=== PATIENT | female | born 1985 | race Native Hawaiian/Other Pacific Islander ===

== ENCOUNTER 2019-02-17 16:41 | Emergency (ER) | payer OTHER, SELFPAY ==
[2019-02-17 16:49] VITALS: BP 157/99; PULSE 81; RESP 14; TEMP 36.8; O2SAT 97; BMI 37.8
--- NOTE | 2019-02-17 16:51 | DI.RAD.S_ITS ---
PROCEDURE: XR CHEST 1V INDICATIONS: chest pain TECHNIQUE: One view of the chest was acquired. COMPARISON: None. FINDINGS: Surgical changes and devices: None. Lungs and pleura: Lungs are clear. No pleural effusions or pneumothorax. Mediastinum: Mediastinal contours appear normal. Heart size is normal. Bones and chest wall: No suspicious bony lesions. Overlying soft tissues appear unremarkable. IMPRESSION: Normal for age, source of current chest pain symptoms is not seen. Dictated by: Isma Steele M.D. on 02/17/2019 at 17:22 Approved by: Isma Steele M.D. on 02/17/2019 at 17:23
--- NOTE | 2019-02-17 17:20 | PC.NURSE ---
pt reports, onset of sxs 2 days ago, with left side face,neck,arm,left chest discomfort. dyspneic on exertion (talking and walking) feeling tired. denies fever,nausea or vomiting. hx of asthma, better 2013. has been taking claritin,flonase and sudafed. hx pda, candice,d&c.
[2019-02-17 17:22] VITALS: BP 144/98; PULSE 86; RESP 24; O2SAT 97
[2019-02-17 17:39] LABS: Add Manual Diff / Slide Review NO; Basophils Absolute Auto 100 /uL (0-100); Basophils Percent Auto 1.2 % (0-2); Eosinophils Absolute Auto 100 /uL (0-450); Eosinophils Percent Auto 1.3 % (2-4); Hematocrit 41.3 % (36-46); Lymphocytes Absolute Auto 2400 /uL (1100-4500); Lymphocytes Percent Auto 23.3 % (25-40); Mean Corpuscular Hemoglobin 30.4 PG (26-34); Mean Corpuscular Volume 89.5 fL (80-100); Monocytes Absolute Auto 700 /uL (0-900); Monocytes Percent Auto 7.3 % (3-14); Neutrophils Absolute Auto 6800 /uL (1500-7000); Neutrophils Percent Auto 66.9 % (50-75); Platelet Count 303 X10^3/uL (150-400); Red Blood Cell Count 4.61 X10^6/uL (4.0-5.2); Red Cell Distribution Width 12.3 % (11.6-14.8); White Blood Cell Count 10.2 X10^3/uL (4.5-11.0)
--- NOTE | 2019-02-17 17:43 | ED.CHESTPAIN ---
HPI - Chest Pain <Carmen Hopson PA-C - Last Filed: 02/17/19 20:49> General Chief Complaint: Chest Pain Stated Complaint: states tightness in her chest Time Seen by Provider: 02/17/19 17:43 Source: patient Mode of arrival: ambulatory Limitations: no limitations History of Present Illness HPI narrative: This 33-year-old female comes in due to 4 day history of chest discomfort and dyspnea. She describes the chest as a tight, heavy sensation. She thinks that she woke up with it on Thursday. She indicates the pain is around the collarbone area. She states that she has also been short of breath, feeling like it is hard to get a deep breath and wheeze at times. She states that the chest tightness radiates up into her neck and jaw off and on, which is more of a sharp pain than the heaviness she feels in her chest. She states that this is constant, but worse when sitting up versus lying down, worse with walking around. She denies any nausea or vomiting. She denies pain in her back. She denies any new pain or swelling in her extremities. She denies any cough or fever. 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 She denies any other new complaints on systems review aside from fatigue. She does have a history of allergies which are worst currently and has a history of allergy induced asthma though has not had that in this climate in the last few years. She denies possibility of , uses rhythm method for control. She has no family history of early heart disease or blood clots in her immediate family. She did have a PDA repaired at age 3 Related Data Home Medications Medication Instructions Recorded Confirmed fluticasone propionate [Flonase 1 spray INTRANASAL DAILY 02/17/19 02/17/19 Allergy Relief] loratadine [Claritin] 10 mg PO DAILY 02/17/19 02/17/19 pseudoephedrine HCl [Sudafed] 1 dose PO PRN PRN 02/17/19 02/17/19 Previous Rx's Medication Instructions Recorded albuterol sulfate 2 inhalation INHALATION Q3-4H PRN 02/17/19 #8.5 gram Allergies Allergy/AdvReac Type Severity Reaction Status Date / Time sulindac Allergy Severe ANAPHYLAXIS Verified 02/17/19 16:49 Review of Systems <Carmen Hopson PA-C - Last Filed: 02/17/19 20:49> Review of Systems ROS Unobtainable: All systems reviewed & are unremarkable except as noted in HPI and below PFSH <Carmen Hopson PA-C - Last Filed: 02/17/19 20:49> Medical History (Updated 02/17/19 @ 19:20 by Carmen Hopson PA-C) Asthma due to seasonal allergies (Chronic) Eczema (Chronic) Surgical History S/P repair of PDA (patent ductus arteriosus) (Resolved) History of third molar tooth extraction Status post dilation and curettage (12/18/14) Status post laparoscopic cholecystectomy Status post laparoscopy Family History (Updated 05/14/17 @ 00:00 by Conversion Provider) Father Colon cancer Mother Breast cancer Social History Smoking Status: Never smoker Family History (Updated 05/14/17 @ 00:00 by Conversion Provider) Father Colon cancer Mother Breast cancer Social History Smoking Status: Never smoker Exam <Carmen Hopson PA-C - Last Filed: 02/17/19 20:49> Narrative Exam Narrative: GENERAL APPEARANCE: Patient sitting comfortably, in no distress. EYES: PERRL, EOMI. ORAL CAVITY: Normal oropharynx. THROAT: Clear, a little PND noted. NECK/THYROID: Neck supple, full range of motion, no cervical lymphadenopathy. No supraclavicular nodes LUNGS: Clear to auscultation bilaterally aside from some slight lower lobe crackles that clear with cough, no wheeze. Clear to auscultation following nebulizer treatment CHEST: Tender to palpation over the caudal part of the sternum and left clavicular/infraclavicular area HEART: RRR without murmur, nl S1, S2, no S3 or S4. ABDOMEN: Soft, nontender, nondistended, no CVAT EXTREMITIES: No edema, no cyanosis, no calf tenderness DERMATOLOGIC: No exanthem NEUROLOGIC: Patient is alert and oriented with normal speech and coordination MUSCULOSKELETAL: Slightly reduced right C-spine lateral bend and rotation secondary to tenderness. Full range of motion of the left upper extremity with mild and point tenderness Initial Vital Signs Initial Vital Signs: Vital Signs Temperature 98.3 F 02/17/19 16:49 Pulse Rate 81 02/17/19 16:49 Respiratory Rate 14 02/17/19 16:49 Blood Pressure 157/99 H 02/17/19 16:49 Pulse Oximetry 97 02/17/19 16:49 <Gerardo Rosas MD - Last Filed: 02/18/19 06:05> Initial Vital Signs Initial Vital Signs: Vital Signs Temperature 98.3 F 02/17/19 16:49 Pulse Rate 81 02/17/19 16:49 Respiratory Rate 14 02/17/19 16:49 Blood Pressure 157/99 H 02/17/19 16:49 Pulse Oximetry 97 02/17/19 16:49 Course <Carmen Hopson PA-C - Last Filed: 02/17/19 20:49> Additional Information: The patient had improvement in her breathing after nebulizer treatments and symptoms correlate with worsening of her seasonal allergies. She has a history allergy induced asthma. Chest and shoulder discomfort have improved after anti-inflammatory. She does have tenderness elicited with pressure on the chest and with movement. Likely musculoskeletal. Reviewed findings with attending physician Dr. Rosas who agrees with plan to d/c patient. She agrees to f/u with PCP and return if any acute changes/worsening sx Orders Ordered: Discontinued Medications Albuterol/Ipratropium (Duoneb) 3 ml INH NOW ONE Stop: 02/17/19 17:57 Last Admin: 02/17/19 18:04 Dose: 3 ml Albuterol/Ipratropium (Duoneb) 3 ml INH NOW ONE Stop: 02/17/19 17:57 Last Admin: 02/17/19 18:04 Dose: Not Given Ketorolac Tromethamine (Toradol) 30 mg IV NOW ONE Stop: 02/17/19 18:37 Last Admin: 02/17/19 18:52 Dose: 30 mg Vital Signs - 8 hr 02/17/19 16:49 02/17/19 17:22 02/17/19 18:04 Temperature 98.3 F Pulse Rate 81 86 Respiratory Rate 14 24 Blood Pressure 157/99 H Blood Pressure [Right Arm] 144/98 H Pulse Oximetry 97 97 98 02/17/19 19:14 Temperature Pulse Rate 89 Respiratory Rate 21 Blood Pressure Blood Pressure [Right Arm] 142/95 H Pulse Oximetry 98 <Gerardo Rosas MD - Last Filed: 02/18/19 06:05> Orders Ordered: Discontinued Medications Albuterol/Ipratropium (Duoneb) 3 ml INH NOW ONE Stop: 02/17/19 17:57 Last Admin: 02/17/19 18:04 Dose: 3 ml Albuterol/Ipratropium (Duoneb) 3 ml INH NOW ONE Stop: 02/17/19 17:57 Last Admin: 02/17/19 18:04 Dose: Not Given Ketorolac Tromethamine (Toradol) 30 mg IV NOW ONE Stop: 02/17/19 18:37 Last Admin: 02/17/19 18:52 Dose: 30 mg Vital Signs - 8 hr 02/17/19 16:49 02/17/19 17:22 02/17/19 18:04 Temperature 98.3 F Pulse Rate 81 86 Respiratory Rate 14 24 Blood Pressure 157/99 H Blood Pressure [Right Arm] 144/98 H Pulse Oximetry 97 97 98 02/17/19 19:14 Temperature Pulse Rate 89 Respiratory Rate 21 Blood Pressure Blood Pressure [Right Arm] 142/95 H Pulse Oximetry 98 MDM - Chest Pain <Carmen Hopson PA-C - Last Filed: 02/17/19 20:49> Lab Data Attestation: I reviewed the patient's lab results. Result diagrams: 02/17/19 17:15 02/17/19 17:15 Lab Results 02/17/19 02/17/19 02/17/19 Range/Units 17:15 17:15 17:15 WBC 10.2 (4.5-11.0) X10^3/uL RBC 4.61 (4.0-5.2) X10^6/uL Hgb 14.0 (12.0-16.0) g/dL Hct 41.3 (36-46) % MCV 89.5 (80-100) fL MCH 30.4 (26-34) PG MCHC 34.0 (30-36) % RDW 12.3 (11.6-14.8) % Plt Count 303 (150-400) X10^3/uL Neut % (Auto) 66.9 (50-75) % Lymph % (Auto) 23.3 L (25-40) % [place] % (Auto) 7.3 (3-14) % Eos % (Auto) 1.3 L (2-4) % Baso % (Auto) 1.2 (0-2) % Neut # (Auto) 6800 (5109-2834) /uL Lymph # (Auto) 2400 (4894-9102) /uL [place] # (Auto) 700 (0-900) /uL Eos # (Auto) 100 (0-450) /uL Baso # (Auto) 100 (0-100) /uL PT 12.1 (10.1-12.7) SECONDS INR 1.0 (0.9-1.3) APTT 32 (26.4-36.2) SECONDS D-Dimer (<230) ng/mL Sodium 139 (137-145) mmol/L Potassium 3.6 (3.4-5.1) mmol/L Chloride 100 (98-107) mmol/L Carbon Dioxide 29 (22-32) mmol/L BUN 8 (7-17) mg/dL Creatinine 0.60 (0.52-1.04) mg/dL Estimated GFR > 60.0 (>60) mL/min BUN/Creatinine Ratio 13.3 (6-22) Glucose 102 H (70-100) mg/dL Calcium 9.1 (8.4-10.2) mg/dL Total Bilirubin 0.7 (0.2-1.3) mg/dL AST 18 (14-36) IU/L ALT 13 (9-52) IU/L Alkaline Phosphatase 85 (38-126) U/L Total Creatine Kinase 94 (30-135) U/L CK-MB (CK-2) TNP CK-MB (CK-2) Rel Index TNP Troponin I < 0.012 (0.01-0.034) ng/mL Total Protein 8.4 H (6.3-8.2) g/dL Albumin 4.3 (3.5-5.0) g/dL Globulin 4.1 (1.7-4.1) g/dL Albumin/Globulin Ratio 1.0 (1.0-2.8) Lipase 37 (23-300) U/L // Range/Units 17:15 WBC (4.5-11.0) X10^3/uL RBC (4.0-5.2) X10^6/uL Hgb (12.0-16.0) g/dL Hct (36-46) % MCV (80-100) fL MCH (26-34) PG MCHC (30-36) % RDW (11.6-14.8) % Plt Count (150-400) X10^3/uL Neut % (Auto) (50-75) % Lymph % (Auto) (25-40) % [place] % (Auto) (3-14) % Eos % (Auto) (2-4) % Baso % (Auto) (0-2) % Neut # (Auto) (1994-0977) /uL Lymph # (Auto) (6421-3579) /uL [place] # (Auto) (0-900) /uL Eos # (Auto) (0-450) /uL Baso # (Auto) (0-100) /uL PT (10.1-12.7) SECONDS INR (0.9-1.3) APTT (26.4-36.2) SECONDS D-Dimer 271 H (<230) ng/mL Sodium (137-145) mmol/L Potassium (3.4-5.1) mmol/L Chloride (98-107) mmol/L Carbon Dioxide (22-32) mmol/L BUN (7-17) mg/dL Creatinine (0.52-1.04) mg/dL Estimated GFR (>60) mL/min BUN/Creatinine Ratio (6-22) Glucose (70-100) mg/dL Calcium (8.4-10.2) mg/dL Total Bilirubin (0.2-1.3) mg/dL AST (14-36) IU/L ALT (9-52) IU/L Alkaline Phosphatase (38-126) U/L Total Creatine Kinase (30-135) U/L CK-MB (CK-2) CK-MB (CK-2) Rel Index Troponin I (0.01-0.034) ng/mL Total Protein (6.3-8.2) g/dL Albumin (3.5-5.0) g/dL Globulin (1.7-4.1) g/dL Albumin/Globulin Ratio (1.0-2.8) Lipase (23-300) U/L Point of Care Testing Test Results Negative Urine Dip Bedside Urine Glucose Negative Bedside Urine Bilirubin - Negative Bedside Urine Ketone - Negative Urine Specific Terral 1.015 Bedside Urine Occult Blood - Negative Bedside Urine pH 6.0 Bedside Urine Protein - Negative Bedside Urine Urobilinogen - Negative Bedside Urine Nitrite - Negative Bedside Urine Leukocytes - Negative Esterase ECG Data Attestation: I personally reviewed and interpreted this ECG as follows: (Normal sinus rhythm with minor T-wave inversions in inferior leads) Prior ECG tracings: not available for review <Gerardo Rosas MD - Last Filed: 02/18/19 06:05> Lab Data Lab Results 02/17/19 02/17/19 02/17/19 Range/Units 17:15 17:15 17:15 WBC 10.2 (4.5-11.0) X10^3/uL RBC 4.61 (4.0-5.2) X10^6/uL Hgb 14.0 (12.0-16.0) g/dL Hct 41.3 (36-46) % MCV 89.5 (80-100) fL MCH 30.4 (26-34) PG MCHC 34.0 (30-36) % RDW 12.3 (11.6-14.8) % Plt Count 303 (150-400) X10^3/uL Neut % (Auto) 66.9 (50-75) % Lymph % (Auto) 23.3 L (25-40) % [place] % (Auto) 7.3 (3-14) % Eos % (Auto) 1.3 L (2-4) % Baso % (Auto) 1.2 (0-2) % Neut # (Auto) 6800 (3652-2487) /uL Lymph # (Auto) 2400 (7446-8284) /uL [place] # (Auto) 700 (0-900) /uL Eos # (Auto) 100 (0-450) /uL Baso # (Auto) 100 (0-100) /uL PT 12.1 (10.1-12.7) SECONDS INR 1.0 (0.9-1.3) APTT 32 (26.4-36.2) SECONDS D-Dimer (<230) ng/mL Sodium 139 (137-145) mmol/L Potassium 3.6 (3.4-5.1) mmol/L Chloride 100 (98-107) mmol/L Carbon Dioxide 29 (22-32) mmol/L BUN 8 (7-17) mg/dL Creatinine 0.60 (0.52-1.04) mg/dL Estimated GFR > 60.0 (>60) mL/min BUN/Creatinine Ratio 13.3 (6-22) Glucose 102 H (70-100) mg/dL Calcium 9.1 (8.4-10.2) mg/dL Total Bilirubin 0.7 (0.2-1.3) mg/dL AST 18 (14-36) IU/L ALT 13 (9-52) IU/L Alkaline Phosphatase 85 (38-126) U/L Total Creatine Kinase 94 (30-135) U/L CK-MB (CK-2) TNP CK-MB (CK-2) Rel Index TNP Troponin I < 0.012 (0.01-0.034) ng/mL Total Protein 8.4 H (6.3-8.2) g/dL Albumin 4.3 (3.5-5.0) g/dL Globulin 4.1 (1.7-4.1) g/dL Albumin/Globulin Ratio 1.0 (1.0-2.8) Lipase 37 (23-300) U/L 02/17/19 Range/Units 17:15 WBC (4.5-11.0) X10^3/uL RBC (4.0-5.2) X10^6/uL Hgb (12.0-16.0) g/dL Hct (36-46) % MCV (80-100) fL MCH (26-34) PG MCHC (30-36) % RDW (11.6-14.8) % Plt Count (150-400) X10^3/uL Neut % (Auto) (50-75) % Lymph % (Auto) (25-40) % [place] % (Auto) (3-14) % Eos % (Auto) (2-4) % Baso % (Auto) (0-2) % Neut # (Auto) (1350-1940) /uL Lymph # (Auto) (8795-8053) /uL [place] # (Auto) (0-900) /uL Eos # (Auto) (0-450) /uL Baso # (Auto) (0-100) /uL PT (10.1-12.7) SECONDS INR (0.9-1.3) APTT (26.4-36.2) SECONDS D-Dimer 271 H (<230) ng/mL Sodium (137-145) mmol/L Potassium (3.4-5.1) mmol/L Chloride (98-107) mmol/L Carbon Dioxide (22-32) mmol/L BUN (7-17) mg/dL Creatinine (0.52-1.04) mg/dL Estimated GFR (>60) mL/min BUN/Creatinine Ratio (6-22) Glucose (70-100) mg/dL Calcium (8.4-10.2) mg/dL Total Bilirubin (0.2-1.3) mg/dL AST (14-36) IU/L ALT (9-52) IU/L Alkaline Phosphatase (38-126) U/L Total Creatine Kinase (30-135) U/L CK-MB (CK-2) CK-MB (CK-2) Rel Index Troponin I (0.01-0.034) ng/mL Total Protein (6.3-8.2) g/dL Albumin (3.5-5.0) g/dL Globulin (1.7-4.1) g/dL Albumin/Globulin Ratio (1.0-2.8) Lipase (23-300) U/L Point of Care Testing Test Results Negative Urine Dip Bedside Urine Glucose Negative Bedside Urine Bilirubin - Negative Bedside Urine Ketone - Negative Urine Specific Terral 1.015 Bedside Urine Occult Blood - Negative Bedside Urine pH 6.0 Bedside Urine Protein - Negative Bedside Urine Urobilinogen - Negative Bedside Urine Nitrite - Negative Bedside Urine Leukocytes - Negative Esterase Discharge Plan Departure Patient Disposition: Home Clinical Impression: Asthma exacerbation Qualifiers: Asthma severity: mild Asthma persistence: intermittent Qualified Code(s): J45.21 - Mild intermittent asthma with (acute) exacerbation Chest wall muscle strain Qualifiers: Encounter type: initial encounter Qualified Code(s): S29.011A - Strain of muscle and tendon of front wall of thorax, initial encounter Discharge Date/Time: 02/17/19 19:43 Interventions: ED Discharge Assessment Last Done: 02/17/19 19:43 Instructions: Allergic Rhinitis, DI for Asthma -- Adult, DI for Atypical Chest Pain Activity Restrictions/Additional Instructions: Since you are feeling better, you can return home and monitor. Please take 800 mg of ibuprofen every 8 hours routinely for now for your pain since it is similar to the medicine that we gave you here and that seems to have helped. I suspect that the pain in your chest and shoulder/neck area are muscular, since we can make them happen with pressure on the chest and neck and arm movements. It is possible that you strained this area. Since your breathing is better after the nebulizer treatment, I suspect that this was a separate issue related to your asthma, especially since her allergies have been worse recently. Please continue your allergy medicine as and use the inhaler with spacer as often as needed. Please see your PCP in the next few days for follow-up to determine whether you need further treatment, and as we discussed, you should return here if you have any acutely worsening symptoms. Prescriptions: New albuterol sulfate 90 mcg/actuation HFA aerosol inhaler 2 inhalation INHALATION Q3-4H PRN (Reason: asthma) Qty: 8.5 RF: 0 No Action pseudoephedrine HCl [Sudafed] 30 mg Tablet 1 dose PO PRN PRN (Reason: Congestion) RF: 0 fluticasone propionate [Flonase Allergy Relief] 50 mcg/actuation [place],Suspension 1 spray Intranasal DAILY RF: 0 loratadine [Claritin] 10 mg Tablet 10 mg PO DAILY RF: 0 Referrals: Leona Jerez ARNP [Primary Care Provider] - <Gerardo Rosas MD - Last Filed: 02/18/19 06:05> Cosign ED Attending Larryature Attestation: I was present in the ER at the time of this patient's evaluation. I was available for consultation or to see the patient directly. I agree with the assessment and treatment plan
[2019-02-17 17:44] LABS: Prothrombin Time 12.1 SECONDS (10.1-12.7)
[2019-02-17 17:47] LABS: PTT Partial Thromboplastin Tim 32 SECONDS (26.4-36.2)
[2019-02-17 17:49] LABS: Alanine Aminotransferase 13 IU/L (9-52); Albumin 4.3 g/dL (3.5-5.0); Alkaline Phosphatase 85 U/L (38-126); Aspartate Aminotransferase 18 IU/L (14-36); BUN Creatinine Ratio 13.3 (6-22); Bilirubin Total 0.7 mg/dL (0.2-1.3); Blood Urea Nitrogen 8 mg/dL (7-17); Calcium 9.1 mg/dL (8.4-10.2); Carbon Dioxide 29 mmol/L (22-32); Chloride 100 mmol/L (98-107); Creatine Kinase 94 U/L (30-135); Estimated Glomerular Filt Rate > 60.0 mL/min (>60); Globulin 4.1 g/dL (1.7-4.1); Glucose 102 mg/dL (70-100); HEMOLYSIS < 15 (0-50); Lipase 37 U/L (23-300); Potassium 3.6 mmol/L (3.4-5.1); Sodium 139 mmol/L (137-145); Total Protein 8.4 g/dL (6.3-8.2)
[2019-02-17 18:01] LABS: Troponin I < 0.012 ng/mL (0.01-0.034)
[2019-02-17 18:04] VITALS: O2SAT 98
[2019-02-17] MEDS: ALBUTEROL/IPRATROPIUM 3 ML AMPUL INH (18:04)
[2019-02-17 18:19] LABS: D Dimer 271 ng/mL (<230)
[2019-02-17] MEDS: KETOROLAC 60 MG/2 ML VIAL 30 MG IV (18:52)
[2019-02-17 19:14] VITALS: BP 142/95; PULSE 89; RESP 21; O2SAT 98
== END 2019-02-17 19:43 | disposition home or self-care (01) ==
PROVIDERS: Emergency Medicine; Emergency Provider Internal Medicine; Family Provider Specialist; PCP Nurse Practitioner
DX: J45.21 Mild intermittent asthma with (acute) exacerbation (principal); S29.011A Strain of muscle and tendon of front wall of thorax, initial encounter; R07.89 Other chest pain
CPT/HCPCS: 36591; 71045; 80053; 81003; 81025; 82550; 83690; 84484; 85025; 85379; 85610; 85730; 93005; 93010; 94640; 96374; 99283; 99285; J1885

== ENCOUNTER → 2019-03-01 10:50 | Outpatient (CLI) | payer OTHER, SELFPAY ==
[2019-03-01 12:06] LABS: Cholesterol 169 mg/dL (140-199); Glucose 98 mg/dL (70-100); HDL Cholesterol 49 mg/dL (40-60); LDL Cholesterol Calculated 105 mg/dL (<100); Triglycerides 73 mg/dL (35-150)
[2019-03-01 12:37] LABS: TSH w/ Reflex to FT4 1.43 uIU/mL (0.47-4.68)
== END ==
PROVIDERS: PCP Nurse Practitioner; Visit Provider Nurse Practitioner
DX: E04.9 Nontoxic goiter, unspecified (principal); Z01.419 Encounter for gynecological examination (general) (routine) without abnormal findings; R73.9 Hyperglycemia, unspecified
CPT/HCPCS: 80061; 82947; 84443

== ENCOUNTER 2019-03-18 19:57 | Emergency (ER) | payer OTHER, SELFPAY ==
[2019-03-18 20:03] VITALS: BP 151/102; PULSE 76; RESP 20; TEMP 36.5; O2SAT 98; BMI 37.8
--- NOTE | 2019-03-18 20:05 | PC.NURSE ---
PT states SOB since this morning, thinks it is related to her asthma, used albuterol at 4pm still experiencing difficulty breathing. Pt denies pain reports chest tightness with deep inspiration. LS clear bilaterally upon auscultation.
[2019-03-18] MEDS: ALBUTEROL 2.5 MG/3 ML NEB (ADULT) INH (20:11)
[2019-03-18] MEDS: ALBUTEROL/IPRATROPIUM 3 ML AMPUL INH (20:11)
[2019-03-18 20:12] VITALS: PULSE 78; RESP 20; O2SAT 100
--- NOTE | 2019-03-18 20:19 | ED_ITS ---
HPI - URI/Sore Throat <Carmen Hopson PA-C - Last Filed: 03/18/19 20:55> General Chief Complaint: Upper Respiratory Symptoms Stated Complaint: NECK PAIN SOB ARM TINGLNESS Time Seen by Provider: 03/18/19 20:09 Source: patient Mode of arrival: ambulatory Limitations: no limitations History of Present Illness HPI Narrative: This 34-year-old female returns to ED due to asthma exacerbation. She states that after seen last month, she after nebulizer treatments. She has since seen her PCP and has been on steroid inhaler and was also put on prednisone. She states that she was feeling much better after on prednisone for 5 days, however stopped on Thursday and now symptoms are worse today. She used the steroid inhaler twice today and also has been using her albuterol all day without good relief. She feels like she has increased wheeze, dyspnea and tightness. She denies any new fever, cough, upper respiratory symptoms. She denies any chest pain, new pain or swelling in extremities and feels like this is typical asthma exacerbation. Denies possibility of . Related Data Home Medications Medication Instructions Recorded Confirmed fluticasone propionate [Flonase 1 spray INTRANASAL DAILY 02/17/19 03/11/19 Allergy Relief] loratadine [Claritin] 10 mg PO DAILY 02/17/19 03/11/19 Previous Rx's Medication Instructions Recorded albuterol sulfate 2 inhalation INHALATION Q3-4H PRN 02/17/19 #8.5 gram albuterol sulfate HFA 90 1 - 2 puff INHALATION Q4-6H PRN 03/01/19 mcg/actuation aerosol inhaler #8.5 gram beclomethasone diprop 40 1 puff INHALATION QAM #10.6 gram 03/11/19 mcg/actuation HFA breath activated aerosol Allergies Allergy/AdvReac Type Severity Reaction Status Date / Time sulindac Allergy Severe ANAPHYLAXIS Verified 03/11/19 12:15 Review of Systems <Carmen Hopson PA-C - Last Filed: 03/18/19 20:55> Review of Systems ROS Unobtainable: All systems reviewed & are unremarkable except as noted in HPI and below PFSH <Carmen Hopson PA-C - Last Filed: 03/18/19 20:55> Medical History Asthma due to seasonal allergies (Chronic) Eczema (Chronic) Family History Father Colon cancer Mother Breast cancer Social History Smoking Status: Never smoker Exam <Carmen Hopson PA-C - Last Filed: 03/18/19 20:55> Narrative Exam Narrative: GENERAL APPEARANCE: Patient sitting comfortably, in no distress. HEENT: EOMI, normal oropharynx NECK/THYROID: Neck supple, no masses LUNGS: Breath sounds a little bit coarse without clear wheezes or crackles, no cough on exam, no accessory muscle use or retraction. Speaking in complete sentences HEART: Regular rate and rhythm without murmur, normal S1, S2, no S3 or S4. EXTREMITIES: No edema. No calf tenderness NEUROLOGIC: Alert and oriented, normal speech, gait and coordination. Initial Vital Signs Initial Vital Signs: Vital Signs Temperature 97.7 F 03/18/19 20:03 Pulse Rate 76 03/18/19 20:03 Respiratory Rate 20 03/18/19 20:03 Blood Pressure 151/102 H 03/18/19 20:03 Pulse Oximetry 98 03/18/19 20:03 <Gerardo Rosas MD - Last Filed: 03/19/19 02:43> Initial Vital Signs Initial Vital Signs: Vital Signs Temperature 97.7 F 03/18/19 20:03 Pulse Rate 76 03/18/19 20:03 Respiratory Rate 20 03/18/19 20:03 Blood Pressure 151/102 H 03/18/19 20:03 Pulse Oximetry 98 03/18/19 20:03 Course <Carmen Hopson PA-C - Last Filed: 03/18/19 20:55> Additional Information: Patient has known allergy induced asthma, feeling much better after nebulizer treatments. She was doing better on prednisone, finished that on Thursday and now symptoms have worsened again. She did a 5 day course. Will restart as she may need a longer taper. Increased dose on steroid inhaler, continue allergy medicines. She will follow up with her PCP 1st of next week to assess progress and plan how to taper as well as discuss getting nebulizer for home treatment. She agreed to return if any acutely worsening symptoms again in the interim. Orders Ordered: Discontinued Medications Albuterol (Ventolin) 2.5 mg INH NOW ONE Stop: 03/18/19 20:10 Last Admin: 03/18/19 20:11 Dose: 2.5 mg Albuterol/Ipratropium (Duoneb) 3 ml INH NOW ONE Stop: 03/18/19 20:10 Last Admin: 03/18/19 20:11 Dose: 3 ml Prednisone (Deltasone 20 Mg Prepack) 1 bottle MISC SEEINSTR ONE Stop: 03/18/19 20:33 Last Admin: 03/18/19 20:36 Dose: 1 bottle Vital Signs - 8 hr 03/18/19 20:03 03/18/19 20:12 03/18/19 20:42 Temperature 97.7 F Pulse Rate 76 78 81 Respiratory Rate 20 20 16 Blood Pressure 151/102 H Blood Pressure [Left Arm] 137/89 Pulse Oximetry 98 100 99 <Gerardo Rosas MD - Last Filed: 03/19/19 02:43> Orders Ordered: Discontinued Medications Albuterol (Ventolin) 2.5 mg INH NOW ONE Stop: 03/18/19 20:10 Last Admin: 03/18/19 20:11 Dose: 2.5 mg Albuterol/Ipratropium (Duoneb) 3 ml INH NOW ONE Stop: 03/18/19 20:10 Last Admin: 03/18/19 20:11 Dose: 3 ml Prednisone (Deltasone 20 Mg Prepack) 1 bottle MISC SEEINSTR ONE Stop: 03/18/19 20:33 Last Admin: 03/18/19 20:36 Dose: 1 bottle Vital Signs - 8 hr 03/18/19 20:03 03/18/19 20:12 03/18/19 20:42 Temperature 97.7 F Pulse Rate 76 78 81 Respiratory Rate 20 20 16 Blood Pressure 151/102 H Blood Pressure [Left Arm] 137/89 Pulse Oximetry 98 100 99 Discharge Plan Departure Patient Disposition: Home Clinical Impression: Asthma exacerbation Qualifiers: Asthma severity: moderate Asthma persistence: persistent Qualified Code(s): J45.41 - Moderate persistent asthma with (acute) exacerbation Discharge Date/Time: 03/18/19 20:40 Interventions: ED Discharge Assessment Last Done: 03/18/19 20:40 Instructions: DI for Asthma -- Adult Activity Restrictions/Additional Instructions: As we talked about, you should return if you have any acutely worsening symptoms prior to seeing your PCP, which you should do on Thursday or Thursday. You can monitor at home for now since you are feeling better. In the interim, please start prednisone 40 mg daily (2 of the tablets we gave you) for 3 days, then decrease to 30 mg (1-1/2 tablets), then taper as directed by your PCP. You may need to do a longer taper than you did last time since your asthma worsened again right away. Increase your beclomethasone inhaler to 2 puffs twice daily, and use your albuterol inhaler as often as needed. Continue your allergy medicines. Please talk with your PCP about obtaining a nebulizer machine for home use during the allergy season as needed, and whether addition of a medicine called Singulair could be helpful for you as well since you have difficulty with your asthma when your allergies flare up. Prescriptions: No Action albuterol sulfate 90 mcg/actuation HFA aerosol inhaler 1 - 2 puff INHALATION Q4-6H PRN (Reason: shortness of breath or wheezing) Qty: 8.5 RF: 3 beclomethasone dipropionate 40 mcg/actuation HFA aerosol breath activated 1 puff INHALATION QAM Qty: 10.6 RF: 3 fluticasone propionate [Flonase Allergy Relief] 50 mcg/actuation [place],Suspension 1 spray Intranasal DAILY RF: 0 loratadine [Claritin] 10 mg Tablet 10 mg PO DAILY RF: 0 albuterol sulfate 90 mcg/actuation HFA aerosol inhaler 2 inhalation INHALATION Q3-4H PRN (Reason: asthma) Qty: 8.5 RF: 0 Referrals: Leona Jerez ARNP [Primary Care Provider] - <Gerardo Rosas MD - Last Filed: 03/19/19 02:43> Cosign ED Attending Larryature Attestation: I was present in the ER at the time this patient's care. I was available for consultation or to see the patient di rectly. I agree with the assessment and treatment plan.
[2019-03-18] MEDS: predniSONE 20 MG PREPACK 1 BOTTLE MISC (20:36)
[2019-03-18 20:42] VITALS: BP 137/89; PULSE 81; RESP 16; O2SAT 99
== END 2019-03-18 20:40 | disposition home or self-care (01) ==
PROVIDERS: Emergency Provider Internal Medicine; PCP Nurse Practitioner
DX: J45.41 Moderate persistent asthma with (acute) exacerbation (principal)
CPT/HCPCS: 94640; 99282; 99284; J7613

== ENCOUNTER → 2020-03-22 12:04 | Outpatient (CLI) | payer OTHER, SELFPAY ==
--- NOTE | 2020-03-22 12:05 | DI.RAD.S_ITS ---
PROCEDURE: XR CHEST 2V INDICATIONS: shortness of breath TECHNIQUE: 2 views of the chest were acquired. COMPARISON: [facility], CR, XR CHEST 1V, 02/17/2019, 17:04. FINDINGS: Surgical changes and devices: None. Lungs and pleura: Lungs are clear. No pleural effusions or pneumothorax. Mediastinum: Mediastinal contours are normal. Heart size is normal. Bones and chest wall: No suspicious bony abnormalities. Soft tissues appear unremarkable. IMPRESSION: Normal for age, source of current shortness of breath symptoms is not seen. Dictated by: Isma Steele M.D. on 03/22/2020 at 12:48 Approved by: Isma Steele M.D. on 03/22/2020 at 12:48
== END ==
PROVIDERS: PCP Nurse Practitioner; Referring Provider Nurse Practitioner; Visit Provider Nurse Practitioner
DX: R05 Cough (principal); R06.02 Shortness of breath; J45.901 Unspecified asthma with (acute) exacerbation
CPT/HCPCS: 71046; 87635

== ENCOUNTER → 2020-03-22 13:54 | Outpatient (CLI) | payer OTHER, SELFPAY ==
[2020-03-23 13:09] LABS: COVID19 Sendout Not Detected (Not Detected)
== END ==
PROVIDERS: PCP Nurse Practitioner; Visit Provider Physician Assistant
DX: R05 Cough (principal); R06.02 Shortness of breath
CPT/HCPCS: 87635

== ENCOUNTER → 2020-04-05 07:46 | Outpatient (CLI) | payer OTHER, SELFPAY ==
--- NOTE | 2020-04-05 08:00 | DI.ECHO.S_ITS ---
Echocardiogram Report + + :Name: KRISHAN RAMIREZ Study Date: 04/05/2020 Height: 64 in : :[facility] Weight: 230 lb : : Gender: Female BSA: 2.1 m2 : :: 1985 Age: 35 yrs BP: 118/64 mmHg: :Reason For Study: SHORTNESS OF BREATH : :Ordering Physician: ROCHELLE ZUNIGA Performed By: Tammy Cantrell : :Referring: ROCHELLE ZUNIGA : + + Interpretation Summary Patient states history of PDA closure as a child. No significant chamber enlargement on echocardiogram. No evidence of significant pulmonary hypertension. No significant turbulence seen in the main pulmonary artery. Doppler profile of pulmonary artery blood flow is homogeneous and velocity not significantly increased. No significant diastolic retrograde reversal in descending aorta. The left ventricle is normal in size. The ejection fraction is estimated to be 60-65%. Diastolic parameters suggest probable normal left ventricular diastolic function and normal filling pressures. The right ventricle is normal in size and function. Both atria are normal in size. No significant valvular pathology seen. The IVC is of normal diameter and collapses greater than 50% with a sniff. This suggests a low right atrial pressure of 3 mm Hg. Procedure: A two-dimensional transthoracic echocardiogram with color flow and Doppler was performed. The study quality was technically adequate. There is no prior echocardiogram noted for this patient. The patient was in sinus rhythm with heart rates between 68-75 bpm during the exam. Left Ventricle: The left ventricle is normal in size. Mild septal wall thickness. No VERNA. No significant LV outflow tract obstruction. No significant mitral regurgitation. There is no thrombus. The ejection fraction is estimated to be 60-65%. There are no focal wall motion abnormalities. Diastolic parameters suggest probable normal left ventricular diastolic function and normal filling pressures. Right Ventricle: The right ventricle is normal in size and function. Atria: The left atrial size is normal. Both atria are normal in size. Right atrial size is normal. There is no Doppler evidence for an interatrial shunt. Mitral Valve: The mitral valve is normal in structure and function. No systolic anterior motion of the mitral valve. There is no mitral regurgitation noted. Aortic Valve: The aortic valve is trileaflet. The aortic valve opens well. There is no aortic valve stenosis. No aortic regurgitation is present. Tricuspid Valve: The tricuspid valve is normal in structure and function. There is a trace or physiologic amount of tricuspid regurgitation. Pulmonary artery pressures cannot be estimated because of the lack of a measurable TR jet velocity but the IVC suggests a CVP of around 3 mmHg. Pulmonic Valve: The pulmonic valve is not well seen, but is grossly normal. There is a trace or physiologic amount of pulmonic regurgitation. Great Vessels: The aortic root is normal size. The ascending aorta is at the upper limits of normal in size. The IVC is of normal diameter and collapses greater than 50% with a sniff. This suggests a low right atrial pressure of 3 mm Hg. Pericardium/ Pleura There is no pericardial effusion. There is no pleural effusion. MMode/2D Measurements & Calculations LVIDd: 4.5 cm LVOT diam: 2.4 cm LVIDs: 2.8 cm Ao root diam: 3.4 cm FS: 36.5 % asc Aorta Diam: 3.5 cm EPSS: 0.86 cm Ao Arch Diam (Prox Trans): 3.0 cm IVSd: 1.2 cm LVPWd: 0.86 cm LV junior. diameter/BSA (cm/m^2): 2.2 LV sys. diameter/BSA (cm/m^2): 1.4 LA A2 area: 18.1 cm2 RA long axis: 4.6 cm LA A4 area: 20.3 cm2 RA area: 13.1 cm2 LA length (vol): 5.5 cm RA vol: 31.4 ml LA vol: 56.9 ml RA : 15.1 ml/m2 LA vol index: 27.4 ml/m2 IVC diam: 1.1 cm RVD1 (basal): 3.6 cm TAPSE: 2.3 cm Doppler Measurements & Calculations Ao V2 max: 142.9 cm/sec LVOT Max Manuel: 111.2 cm/sec Ao V2 mean: 91.7 cm/sec LV V1 max P.9 mmHg Ao max P.2 mmHg LV V1 VTI: 23.3 cm Ao mean P.1 mmHg ARELY(I,D): 3.7 cm2 Ao V2 VTI: 29.3 cm ARELY(V,D): 3.6 cm2 sev ratio: 0.80 ARELY indexed to BSA (cm^2/m^2): 1.8 MV E max manuel: 76.2 cm/sec PA V2 max: 108.3 cm/sec MV A max manuel: 60.8 cm/sec PA V2 mean: 76.3 cm/sec MV E/A: 1.3 PA mean P.6 mmHg Med Peak E' Manuel: 8.2 cm/sec PA pr(Accel): 17.3 mmHg E/E' med: 9.3 Lat Peak E' Manuel: 11.5 cm/sec E/E' lat: 6.6 E/e' average: 7.9 MV dec time: 0.18 sec SV(OT): 108.1 ml Reading Physician:09:26 AM
== END ==
PROVIDERS: PCP Nurse Practitioner; Referring Provider Nurse Practitioner; Visit Provider Nurse Practitioner
DX: R06.02 Shortness of breath (principal); J45.901 Unspecified asthma with (acute) exacerbation; Z87.74 Personal history of (corrected) congenital malformations of heart and circulatory system
CPT/HCPCS: 93306

== ENCOUNTER → 2020-04-10 08:39 | Outpatient (CLI) | payer OTHER, SELFPAY ==
[2020-04-11 08:10] LABS: COVID19 Sendout Not Detected (Not Detect)
== END ==
PROVIDERS: PCP Nurse Practitioner; Visit Provider Physician Assistant
DX: Z01.812 Encounter for preprocedural laboratory examination (principal)
CPT/HCPCS: 87635

== ENCOUNTER → 2020-04-13 08:36 | Outpatient (CLI) | payer OTHER, SELFPAY ==
--- NOTE | 2020-04-17 08:19 | PM.PFT.1 ---
Pulmonary Function Test Referral & Results Date Patient Seen: 04/13/20 Requesting provider: Wilson Solitario Results: The spirometry demonstrates an FVC of 3.16 L which is 84% of predicted. The FEV1 was measured at 2.74 L which is 87% of predicted. The FEV1/FVC ratio was 86 which is 103% of predicted. Following the administration of bronchodilator there was a 31% improvement in FEF 25-75%. Lung volumes show an SVC of 3.18 L which is 88% of predicted. The diffusing capacity was measured at 20.36 which is 83% of predicted. No hemoglobin value was provided, so no correction for potential anemia could be made, if appropriate. The maximum voluntary ventilation was normal Interpretation: This study may identify very mild obstructive lung disease based on shape a flow volume loop and minimal reduction in FEV1 as well as minimal improvement in small airway flow after bronchodilator, as above with improvement in FEF 25-75%. This could also be interpreted as normal however. Lung volumes and diffusing capacity are both probably normal Clinical correlation suggested
== END ==
PROVIDERS: PCP Nurse Practitioner; Referring Provider Nurse Practitioner Family; Visit Provider Nurse Practitioner Family
DX: J45.41 Moderate persistent asthma with (acute) exacerbation (principal)
CPT/HCPCS: 94060; 94726; 94729

== ENCOUNTER → 2020-04-28 07:52 | Outpatient (CLI) | payer OTHER, SELFPAY ==
[2020-04-28 09:01] LABS: Hematocrit 40.5 % (36-46); Hemoglobin 13.7 g/dL (12.0-16.0); Mean Corpuscular Volume 88.4 fL (80-100); Platelet Count 343 X10^3/uL (150-400); Red Blood Cell Count 4.58 X10^6/uL (4.0-5.2); Red Cell Distribution Width 13.4 % (11.6-14.8); White Blood Cell Count 8.6 X10^3/uL (4.5-11.0)
[2020-04-28 09:18] LABS: Alanine Aminotransferase 13 IU/L (<35); Albumin 4.4 g/dL (3.5-5.0); Albumin Globulin Ratio 1.4 (1.0-2.8); Alkaline Phosphatase 66 U/L (38-126); Aspartate Aminotransferase 20 IU/L (14-36); BUN Creatinine Ratio 21.7 (6-22); Bilirubin Total 0.3 mg/dL (0.2-1.3); Blood Urea Nitrogen 15 mg/dL (7-17); Calcium 9.7 mg/dL (8.4-10.2); Carbon Dioxide 27 mmol/L (22-32); Chloride 104 mmol/L (98-107); Cholesterol 166 mg/dL (140-199); Estimated Glomerular Filt Rate > 60.0 mL/min (>60); Globulin 3.1 g/dL (1.7-4.1); Glucose 108 mg/dL (70-100); HDL Cholesterol 49 mg/dL (40-60); HEMOLYSIS < 15 (0-50); LDL Cholesterol Calculated 99 mg/dL (<100); Potassium 4.7 mmol/L (3.4-5.1); Sodium 139 mmol/L (137-145); Total Protein 7.5 g/dL (6.3-8.2); Triglycerides 91 mg/dL (35-150)
[2020-04-28 09:23] LABS: Neutrophils Absolute Manual 5246 /uL (3000-5900); RBC Morphology Normal Morphology; Total Cells Counted 100
[2020-04-28 09:44] LABS: TSH w/ Reflex to FT4 2.08 uIU/mL (0.47-4.68)
== END ==
PROVIDERS: PCP Nurse Practitioner; Referring Provider Nurse Practitioner; Visit Provider Nurse Practitioner
DX: Z00.00 Encounter for general adult medical examination without abnormal findings (principal); E04.9 Nontoxic goiter, unspecified; J45.909 Unspecified asthma, uncomplicated
CPT/HCPCS: 36415; 80053; 80061; 84443; 85025

== ENCOUNTER → 2020-08-29 09:42 | Outpatient (CLI) | payer OTHER, SELFPAY ==
[2020-08-29 10:28] LABS: COVID19 -Nasal RAPID Negative (Negative)
== END ==
PROVIDERS: PCP Nurse Practitioner; Visit Provider Family Medicine
DX: R05 Cough (principal); R06.02 Shortness of breath; Z11.59 Encounter for screening for other viral diseases
CPT/HCPCS: 87635

== ENCOUNTER 2021-02-06 18:45 | Emergency (ER) | payer OTHER, SELFPAY ==
[2021-02-06 18:53] VITALS: BP 170/90; PULSE 67; RESP 20; TEMP 36.9; O2SAT 100
--- NOTE | 2021-02-06 18:55 | DI.RAD.S_ITS ---
PROCEDURE: XR CHEST 1V INDICATIONS: chest pain TECHNIQUE: One view of the chest was acquired. COMPARISON: [facility], CR, XR CHEST 2V, 03/22/2020, 12:01. [facility], CR, XR CHEST 1V, 02/17/2019, 17:04. FINDINGS: Surgical changes and devices: None. Lungs and pleura: Lungs are clear. No pleural effusions or pneumothorax. Mediastinum: Mediastinal contours appear normal. Heart size is normal. Bones and chest wall: No suspicious bony lesions. Overlying soft tissues appear unremarkable. IMPRESSION: No acute cardiopulmonary abnormality. Dictated by: Niels Flores M.D. on 02/06/2021 at 20:23 Approved by: Niels Flores M.D. on 02/06/2021 at 20:23
[2021-02-06 19:43] LABS: Prothrombin Time 11.8 SECONDS (10.1-12.7)
[2021-02-06 19:46] LABS: PTT Partial Thromboplastin Tim 36 SECONDS (26.4-36.2)
[2021-02-06 19:49] LABS: Alanine Aminotransferase 22 IU/L (<35); Albumin 4.3 g/dL (3.5-5.0); Albumin Globulin Ratio 1.2 (1.0-2.8); Alkaline Phosphatase 68 U/L (38-126); Aspartate Aminotransferase 27 IU/L (14-36); BUN Creatinine Ratio 16.9 (6-22); Bilirubin Total 0.2 mg/dL (0.2-1.3); Blood Urea Nitrogen 11 mg/dL (7-17); Calcium 9.1 mg/dL (8.4-10.2); Carbon Dioxide 25 mmol/L (22-32); Chloride 104 mmol/L (98-107); Creatine Kinase 135 U/L (30-135); Estimated Glomerular Filt Rate > 60.0 mL/min (>60); Globulin 3.7 g/dL (1.7-4.1); Glucose 89 mg/dL (70-100); HEMOLYSIS < 15 (0-50); Lipase 65 U/L (23-300); Potassium 3.4 mmol/L (3.4-5.1); Sodium 138 mmol/L (137-145)
[2021-02-06 19:52] LABS: Add Manual Diff / Slide Review NO; Basophils Absolute Auto 100 /uL (0-100); Basophils Percent Auto 0.7 % (0-2); Eosinophils Absolute Auto 100 /uL (0-450); Eosinophils Percent Auto 1.2 % (2-4); Hematocrit 38.4 % (36-46); Hemoglobin 13.2 g/dL (12.0-16.0); Lymphocytes Absolute Auto 2500 /uL (1100-4500); Lymphocytes Percent Auto 24.4 % (25-40); Mean Corpuscular HGB Conc 34.3 % (30-36); Mean Corpuscular Hemoglobin 29.3 PG (26-34); Mean Corpuscular Volume 85.4 fL (80-100); Monocytes Absolute Auto 700 /uL (0-900); Monocytes Percent Auto 7.3 % (3-14); Neutrophils Absolute Auto 6700 /uL (1500-7000); Neutrophils Percent Auto 66.4 % (50-75); Platelet Count 295 X10^3/uL (150-400); Red Cell Distribution Width 13.5 % (11.6-14.8); White Blood Cell Count 10.1 X10^3/uL (4.5-11.0)
[2021-02-06 20:01] LABS: Troponin I < 0.012 ng/mL (0.01-0.034)
[2021-02-06 20:05] LABS: CKMB % Relative Index 0.7 % (1.5-5.0); Creatine Kinase MB 0.89 ng/mL (<2.37)
--- NOTE | 2021-02-06 21:10 | ED_ITS ---
HPI - Chest Pain General Chief Complaint: Chest Pain Stated Complaint: Rib and Chest pain x6 days, cough, SOB Time Seen by Provider: 02/06/21 19:40 Source: patient Mode of arrival: Ambulatory History of Present Illness HPI narrative: 35-year-old woman with a history of moderate persistent asthma presents with 6 days of exacerbation. She is currently taking Advair 500/50 twice a day, as needed albuterol typically 4 times a day, Claritin as well as nasal spray. She has been on Singulair in the past but is not currently taking this. 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 She is wondering if it is appropriate to continue working there. She describes cough and worsening breathing to the point that she is having difficulty exercising. Because she is unable to exercise she is worried that she is not able to lose weight and recognizes that weight loss will help with overall asthma control. She describes no fevers or chills. No productive cough, no vomiting, diarrhea, abdominal pain, skin changes. Related Data Home Medications Medication Instructions Recorded Confirmed fluticasone propionate [Flonase 1 spray INTRANASAL DAILY 02/17/19 11/01/20 Allergy Relief] loratadine [Claritin] 10 mg PO DAILY 02/17/19 11/01/20 tumeric PO 05/02/20 11/01/20 Previous Rx's Medication Instructions Recorded miscellaneous medical supply 1 each MISC DAILY #1 each 12/21/19 albuterol sulfate 2.5 mg INHALATION Q4-6H PRN #75 ml 12/23/19 nebulizers #1 each 12/23/19 albuterol sulfate 90 mcg/actuation 2 puff INHALATION Q4-6H PRN #8.5 03/29/20 aerosol inhaler gram fluticasone 500 mcg-salmeterol 50 1 inh INHALATION Q12H #60 ea 09/05/20 mcg/dose blistr powdr for inhalation cyclobenzaprine 5 mg tablet 5 mg PO TID PRN #20 tab 11/01/20 ibuprofen 800 mg tablet 800 mg PO Q8H PRN #60 tab 11/01/20 montelukast [Singulair] 10 mg PO DAILY #30 tab 02/06/21 prednisone 20 mg PO DAILY #25 tab 02/06/21 Allergies Allergy/AdvReac Type Severity Reaction Status Date / Time sulindac Allergy Severe ANAPHYLAXIS Verified 11/01/20 15:38 Review of Systems Review of Systems Narrative: Remainder of complete review of systems is otherwise unremarkable except for that included in the HPI. Patient History Medical History Asthma due to seasonal allergies Breast mass, right Cough Eczema Elevated blood pressure reading without diagnosis of hypertension Mastodynia of right breast Moderate persistent asthma with exacerbation Nipple discharge in female Shortness of Breath Surgical History History of third molar tooth extraction S/P repair of PDA (patent ductus arteriosus) Status post dilation and curettage (12/18/14) Status post laparoscopic cholecystectomy Status post laparoscopy Family History Father Colon cancer Mother Breast cancer Social History Smoking Status: Never smoker second hand exposure: No alcohol intake: current (Sometimes on special occasions.) substance use type: does not use Smoking Status: Never smoker alcohol intake frequency: holidays/special occasions only Substance Use Type: does not use Exam Narrative Exam Narrative: General: Healthy appearing, in no acute distress. Able to give a complete and coherent history. Well-nourished well-developed HEENT: Moist mucous membranes, normal sclera with reactive pupils, Respiratory: Able to speak in complete sentences but needs to stop and take a big breath at the end of sentences. Lungs minor scattered wheezes but no rales no rhonchi. Full and symmetrical air movement Cardiac: Regular rate and rhythm no murmurs no bruits Abdomen: Soft, nontender, good bowel tones, no flank pain Skin: Warm and dry, no rashes Neurologic: Grossly neurologically intact with no obvious asymmetries or abnormalities Extremities: No trauma, well perfused Psych: Cooperative, appropriate insight and affect Initial Vital Signs Initial Vital Signs: Vital Signs Temperature 98.5 F 02/06/21 18:53 Pulse Rate 67 02/06/21 18:53 Respiratory Rate 20 02/06/21 18:53 Blood Pressure 170/90 H 02/06/21 18:53 Pulse Oximetry 100 02/06/21 18:53 Course Orders Ordered: ED Orders 02/06/21 18:55 XR chest 1V Stat EKG-12 Lead Stat 02/06/21 19:12 Complete Blood Count AUTO DIFF Stat Comprehensive Metabolic Panel Stat Lipase Stat Partial Thromboplastin Time Stat Prothrombin Time INR Stat Troponin & CK Cardiac Panel Stat 02/06/21 20:46 RT Consult Eval and Treat Now Discontinued Medications Prednisone (Prednisone 20 Mg Tablet) 60 mg PO NOW ONE Stop: 02/06/21 21:26 Last Admin: 02/06/21 21:32 Dose: 60 mg Documented by: Vital Signs Vital signs: Vital Signs - 8 hr 02/06/21 18:53 Temperature 98.5 F Pulse Rate 67 Respiratory Rate 20 Blood Pressure 170/90 H Pulse Oximetry 100 MDM - Chest Pain Medical Records Data Attestation: I reviewed the patient's medical records. Lab Data Attestation: I reviewed the patient's lab results. Result diagrams: 02/06/21 19:12 02/06/21 19:12 Labs: Lab Results 02/06/21 02/06/21 02/06/21 Range/Units 19:12 19:12 19:12 WBC 10.1 (4.5-11.0) X10^3/uL RBC 4.50 (4.0-5.2) X10^6/uL Hgb 13.2 (12.0-16.0) g/dL Hct 38.4 (36-46) % MCV 85.4 (80-100) fL MCH 29.3 (26-34) PG MCHC 34.3 (30-36) % RDW 13.5 (11.6-14.8) % Plt Count 295 (150-400) X10^3/uL Neut % (Auto) 66.4 (50-75) % Lymph % (Auto) 24.4 L (25-40) % [place] % (Auto) 7.3 (3-14) % Eos % (Auto) 1.2 L (2-4) % Baso % (Auto) 0.7 (0-2) % Neut # (Auto) 6700 (4112-5841) /uL Lymph # (Auto) 2500 (8443-9318) /uL [place] # (Auto) 700 (0-900) /uL Eos # (Auto) 100 (0-450) /uL Baso # (Auto) 100 (0-100) /uL PT 11.8 (10.1-12.7) SECONDS INR 1.0 (0.9-1.3) APTT 36 (26.4-36.2) SECONDS Sodium 138 (137-145) mmol/L Potassium 3.4 (3.4-5.1) mmol/L Chloride 104 (98-107) mmol/L Carbon Dioxide 25 (22-32) mmol/L BUN 11 (7-17) mg/dL Creatinine 0.65 (0.52-1.04) mg/dL Estimated GFR > 60.0 (>60) mL/min BUN/Creatinine Ratio 16.9 (6-22) Glucose 89 (70-100) mg/dL Calcium 9.1 (8.4-10.2) mg/dL Total Bilirubin 0.2 (0.2-1.3) mg/dL AST 27 (14-36) IU/L ALT 22 (<35) IU/L Alkaline Phosphatase 68 (38-126) U/L Total Creatine Kinase 135 (30-135) U/L CK-MB (CK-2) 0.89 (<2.37) ng/mL CK-MB (CK-2) Rel Index 0.7 L (1.5-5.0) % Troponin I < 0.012 (0.01-0.034) ng/mL Total Protein 8.0 (6.3-8.2) g/dL Albumin 4.3 (3.5-5.0) g/dL Globulin 3.7 (1.7-4.1) g/dL Albumin/Globulin Ratio 1.2 (1.0-2.8) Lipase 65 (23-300) U/L Imaging Data Chest x-ray: Radiologist's Impression: FINDINGS: Surgical changes and devices: None. Lungs and pleura: Lungs are clear. No pleural effusions or pneumothorax. Mediastinum: Mediastinal contours appear normal. Heart size is normal. Bones and chest wall: No suspicious bony lesions. Overlying soft tissues appear unremarkable. IMPRESSION: No acute cardiopulmonary abnormality. Dictated by: Niels Flores M.D. on 02/06/2021 at 20:23 MDM Narrative Medical decision making narrative: 35-year-old woman with a history of moderate persistent asthma that may be worsened with seasonal allergens. No other inciting factors are appreciated on workup today. There is no evidence of acute bacterial infection or COVID. Will have her add a prednisone taper and put her back on singular. 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 She will follow-up with her primary care physician. She is safe for home discharge Discharge Plan Departure Patient Disposition: Home Clinical Impression: Exacerbation of asthma Qualifiers: Asthma severity: moderate Asthma persistence: persistent Qualified Code(s): J45.41 - Moderate persistent asthma with (acute) exacerbation Instructions: DI for Asthma -- Adult Activity Restrictions/Additional Instructions: Thank you for coming in today Your workup does not show evidence for an alternate reason to be short of breath. You do not have congestive heart failure, you are not having a heart attack or heart attack like syndrome, there is no bacterial super infection and no evidence of COVID. I am going to suggest that you restart your Singulair. Seasonal allergens are quite high right now in you may find that you feel better with Singulair during allergy season and do not need it during regular times. I am also going to have you on a prednisone taper to help with the acute wheezing Prescriptions were electronically transmitted to [facility] in [place] Please continue your current Advair twice a day and albuterol up to 4 times a day puffers Given the fact that your asthma is always worse every time he return to work and your work place has made is much accommodation is they are physically able to, I would suggest not returning to that work environment. I think that finding a job that does not involve small children may be healthier for you in the long run. Please follow-up with your primary care provider. Prescriptions: New prednisone 20 mg tablet 20 mg PO DAILY Qty: 25 RF: 0 montelukast [Singulair] 10 mg tablet 10 mg PO DAILY Qty: 30 RF: 3 No Action cyclobenzaprine 5 mg tablet 5 mg PO TID PRN (Reason: muscle spasm) Qty: 20 RF: 0 ibuprofen 800 mg tablet 800 mg PO Q8H PRN (Reason: pain) Qty: 60 RF: 0 albuterol sulfate 2.5 mg /3 mL (0.083 %) solution for nebulization 2.5 mg INHALATION Q4-6H PRN (Reason: shortness of breath or wheezing) Qty: 75 RF: 3 (DME) nebulizers Misc See Rx Instructions .ROUTE .MEDSUPPLY Qty: 1 RF: 0 Blood Pressure Cuff Misc 1 each MISC DAILY Qty: 1 RF: 0 fluticasone propion-salmeterol 500-50 mcg/dose blister with device 1 inh inhalation Q12H Qty: 60 RF: 2 albuterol sulfate 90 mcg/actuation HFA aerosol inhaler 2 puff INHALATION Q4-6H PRN (Reason: bronchospasm) Qty: 8.5 RF: 1 tumeric PO RF: 0 fluticasone propionate [Flonase Allergy Relief] 50 mcg/actuation [place],Suspension 1 spray Intranasal DAILY RF: 0 loratadine [Claritin] 10 mg Tablet 10 mg PO DAILY RF: 0 Referrals: Leona Jerez ARNP [Primary Care Provider] - Stand Alone Forms: Work Release Note
[2021-02-06] MEDS: predniSONE 20 MG TABLET 60 MG PO (21:32)
[2021-02-06 21:42] VITALS: BP 156/76; PULSE 76; RESP 18; O2SAT 99
== END 2021-02-06 21:45 | disposition home or self-care (01) ==
PROVIDERS: Emergency Provider Emergency Medicine; PCP Nurse Practitioner
DX: J45.41 Moderate persistent asthma with (acute) exacerbation (principal)
CPT/HCPCS: 71045; 80053; 82550; 82553; 83690; 84484; 85025; 85610; 85730; 93005; 93010; 99283; 99284

== ENCOUNTER → 2021-04-11 08:24 | Outpatient (CLI) | payer OTHER, SELFPAY ==
--- NOTE | 2021-04-11 | DI.CT.S_ITS ---
PROCEDURE: CT SINUS SCREEN WO CON INDICATIONS: Chronic sinusitis, unspecified TECHNIQUE: Noncontrast 3.0 mm axial images acquired from the frontal sinuses to the mid-sella, with coronal and sagittal reformats. For radiation dose reduction, the following was used: automated exposure control, adjustment of mA and/or kV according to patient size. COMPARISON: None. FINDINGS: Image quality: Excellent. Maxillary Sinuses: No bony remodeling or destruction. There is mild mucosal thickening seen on the left and there is minimal mucosal thickening seen on the right. Ethmoid Air Cells: No bony remodeling or destruction. Sinuses are clear. Sphenoid Sinuses: No bony remodeling or destruction. Sinuses are clear. Frontal Sinuses: No bony remodeling or destruction. Sinuses are clear. Ostiomeatal Complexes: Ostiomeatal complexes are patent, yet they are highly constitutionally narrowed, with bilateral Asuncion cells. Miscellaneous: Visualized intra-orbital contents are normal. 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 There is minimal to mild S shaped nasal septal deviation. IMPRESSION: Focal mild maxillary sinus disease seen, left worse than right. Highly constitutionally narrowed ostiomeatal complexes, with bilateral Asuncion cells. 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 Minimal S shaped nasal septal deviation. Dictated by: Juan Manuel Covington M.D. on 04/11/2021 at 8:39 Approved by: Juan Manuel Covington M.D. on 04/11/2021 at 8:41
== END ==
PROVIDERS: PCP Nurse Practitioner; Referring Provider Physician Assistant; Visit Provider Physician Assistant
DX: J32.0 Chronic maxillary sinusitis (principal); J34.3 Hypertrophy of nasal turbinates
CPT/HCPCS: 70486

== ENCOUNTER → 2021-06-07 17:51 | Outpatient (CLI) | payer OTHER, SELFPAY ==
--- NOTE | 2021-06-07 17:52 | DI.RAD.S_ITS ---
PROCEDURE: XR TIBIA FIBULA LT 2V INDICATIONS: fall TECHNIQUE: 2 views of the tibia and fibula were acquired. COMPARISON: None. FINDINGS: Bones: No fractures or dislocations. No suspicious bony lesions. Soft tissues: No suspicious soft tissue calcifications or masses. IMPRESSION: No acute fracture. No osseous lesion. If symptoms and/or clinical suspicion for pathology persist, further assessment with repeat, or advanced imaging (e.g., CT, MRI, or bone scan) may be helpful for further assessment. Dictated by: Anibal Rios M.D. on 06/07/2021 at 18:18 Approved by: Anibal Rios M.D. on 06/07/2021 at 18:18
--- NOTE | 2021-06-07 17:52 | DI.RAD.S_ITS ---
PROCEDURE: XR KNEE LT 3V INDICATIONS: fall TECHNIQUE: 3 views of the knee were acquired. COMPARISON: None. FINDINGS: Bones: No fractures or dislocations. No suspicious bony lesions. Soft tissues: No joint effusion. No suspicious soft tissue calcifications. IMPRESSION: No acute fracture. No osseous lesion. If symptoms and/or clinical suspicion for pathology persist, further assessment with repeat, or advanced imaging (e.g., CT, MRI, or bone scan) may be helpful for further assessment. Dictated by: Anibal Rios M.D. on 06/07/2021 at 18:18 Approved by: Anibal Rios M.D. on 06/07/2021 at 18:18
== END ==
PROVIDERS: PCP Nurse Practitioner; Referring Provider Nurse Practitioner; Visit Provider Nurse Practitioner
DX: S89.92XA Unspecified injury of left lower leg, initial encounter (principal); W19.XXXA Unspecified fall, initial encounter
CPT/HCPCS: 73562; 73590

== ENCOUNTER → 2021-10-31 09:17 | Outpatient (CLI) | payer OTHER, SELFPAY ==
[2021-10-31 10:29] LABS: Influenza A - CEPHEID Flu A NEGATIVE (NEGATIVE); Influenza B - CEPHEID Flu B NEGATIVE (NEGATIVE)
[2021-10-31 10:30] LABS: COVID-19 CEPHEID PCR (VTM/NP) Negative (Negative)
== END ==
PROVIDERS: PCP Nurse Practitioner; Visit Provider Physician Assistant
DX: Z20.822 Contact with and (suspected) exposure to COVID-19 (principal); J02.9 Acute pharyngitis, unspecified
CPT/HCPCS: 0240U; 87070

== ENCOUNTER → 2022-04-21 07:58 | Outpatient (CLI) | payer OTHER, SELFPAY ==
[2022-04-21 08:28] LABS: COVID19 -Nasal RAPID Negative (Negative)
== END ==
PROVIDERS: PCP Nurse Practitioner; Visit Provider Obstetrics & Gynecology
DX: Z01.812 Encounter for preprocedural laboratory examination (principal); Z20.822 Contact with and (suspected) exposure to COVID-19
CPT/HCPCS: 87635

== ENCOUNTER 2022-04-21 08:12 | Day surgery (SDC) | payer OTHER, SELFPAY ==
[2022-04-21] VITALS (9 sets, daily range): BP systolic 129–175; BP diastolic 67–116; PULSE 64–94; RESP 12–19; TEMP 36.9; O2SAT 96–100; BMI 38.6
--- NOTE | 2022-04-21 | PATH_ITS ---
[facility] Accession Number: [id number] . 01 Material submitted: . fallopian tube - BILATERAL FALLOPIAN TUBES . 01 Diagnosis: Bilateral Fallopian Tubes, Bilateral Salpingectomy: Complete cross-sections of bilateral fimbriated fallopian tube lumen identified without any other significant pathologic alterations. [facility] 04/23/2022 1523 Local . 01 Electronically signed: . Suzanne Osborne MD, Pathologist NPI- [id number] . 01 Gross description: . Received in formalin in a specimen container, labeled with the patient's name and medical record number, bilateral fallopian tubes, is a bilateral fallopian tube specimen. No orientation is provided. Fallopian tube #1 measures 5.5 cm in length and 0.6 cm in diameter. The fimbriae measures 2.0 x 1.0 x 1.0 cm. Fallopian tube #2 measures 5.0 x 0.6 cm in diameter, and the fimbriae measures 1.0 x 0.7 x 0.7 cm. Also in the same container is a pink soft tissue fragment that measures 1.0 x 0.7 x 0.3 cm. The pink soft tissue fragment is entirely inked in blue. The serosal surface of both fallopian tubes is pink, smooth, glistening, and fallopian tube #1 is slightly hyperemic. The cut surfaces are patent and cylindrical with a 0.2 cm lumen. Campus [facility] sections are submitted as follows: . A1: Fallopian tube and fimbriae #1. 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 ([id number]) /MRV 04/22/2022 1434 Local . 01 Pathologist provided ICD-10: Z30.2 . 01 CPT . 107632 Specimen Comment: A courtesy copy of this report has been sent to [phone] Performed at: 01 [facility] [address] [place] [address], [place], [place] [id number] MD Dashawn Payton MD Phone: [phone]
[2022-04-21] MEDS: LACTATED RINGERS 1,000 ML 100 ML IV (08:48)
--- NOTE | 2022-04-21 09:29 | PM.HP.1 ---
History of Present Illness History of Present Illness Date Patient Seen: 04/21/22 Time Patient Seen: 09:29 Chief complaint: SDC Narrative: Patient is a 37 year old who presents for a laparoscopic bilateral salpingectomy for permanent sterilization. Patient History Medical History Asthma due to seasonal allergies Breast mass, right Cough Eczema Elevated blood pressure reading without diagnosis of hypertension Mastodynia of right breast Moderate persistent asthma with exacerbation Nipple discharge in female Shortness of Breath Surgical History History of third molar tooth extraction S/P repair of PDA (patent ductus arteriosus) Status post dilation and curettage (12/18/14) Status post laparoscopic cholecystectomy Status post laparoscopy Family & Social History Family History Father Colon cancer Mother Breast cancer Social History: household members spouse Tobacco & Substance use: Smoking Status Never smoker alcohol intake current alcohol intake frequency holiday/special occasion Substance Use Type does not use Meds Home Medications and Allergies Home Medications Medication Instructions Recorded Confirmed Type fluticasone propionate 50 1 spray intranasal DAILY 02/17/19 04/21/22 History mcg/actuation nasal spray,suspension (Flonase Allergy Relief) miscellaneous medical supply 1 each miscellaneous DAILY #1 ea 12/21/19 04/21/22 Rx (Blood Pressure Cuff) albuterol sulfate 2.5 mg/3 mL 2.5 mg (3 mL) inhalation Q4-6H PRN 12/23/19 04/21/22 Rx (0.083 %) solution for nebulization shortness of breath or wheezing #75 mL albuterol sulfate 90 mcg/actuation 2 puff inhalation Q4-6H PRN 03/29/20 04/21/22 Rx aerosol inhaler bronchospasm #8.5 grams ibuprofen 800 mg tablet 800 mg PO Q8H PRN pain #60 tabs 11/01/20 04/21/22 Rx fluticasone 250 mcg-salmeterol 50 2 inh inhalation BID 03/04/22 04/21/22 History mcg/dose blistr powdr for inhalation Allergies Allergy/AdvReac Type Severity Reaction Status Date / Time sulindac Allergy Severe ANAPHYLAXIS Verified 04/21/22 08:32 Exam Vital Signs (past 8 hours): - 04/21/22 08:38 Temperature 98.4 F Pulse Rate 72 Respiratory Rate 16 Blood Pressure 147/99 H Pulse Oximetry 97 Oxygen Delivery Method Room Air Oxygen Delivery Method Room Air Narrative Exam Narrative: HEENT: No thyromegaly, no anterior cervical or supraclavicular lymphadenopathy. Lungs:Clear to auscultation bilaterally, no wheezes. Cardiovascular: Regular rate and rhythm, no murmurs, rubs, or gallops. Abdomen: Well-healed scars. No hepatosplenomegaly. No masses palpable. External genitalia: Normal Vagina: Normal Cervix: Normal Bimanual exam: 7 Week size anteverted uterus. Mobile. No adnexal masses or tenderness. Ext: No edema Assessment & Plan Assessment & Plan narrative: Assessment: 37 year old who desires permanent sterilization Plan: Laparoscopic bilateral salpingectomy The risks, benefits, and alternatives to the procedure were explained to the patient. The risks including bleeding, infection, injury to the bowel, bladder, or ureters. She understands these risks and agrees to proceed. A full par Q was held and consent form was signed. Time Spent With Patient Critical Care time: I spent a total of [] minutes of critical care time on this patient's care today; this time is exclusive of procedural time.
--- NOTE | 2022-04-21 09:36 | PM.PREOP ---
Pre-operative Note COVID-19 COVID-19 status: Negative Result date/Date tested (Pos, Neg/Pending): 04/21/22 Criteria for continued procedure: Non-surgical alternatives not available or appropriate per current SOC Interval Note History & Physical reviewed/Exam performed by Physician: Yes Changes to H&P: No
--- NOTE | 2022-04-21 09:59 | SUR.OPER ---
Lithotomy on padded OR bed, head on pillow, arms padded and tucked at sides. Legs secured in padded yellow fins stirrups.
[2022-04-21] MEDS: BUPIVACAINE 0.5% (PF) 30 ML, EPINEPHrine 0.15 MG INJ (10:07)
--- NOTE | 2022-04-21 10:44 | PM.GYNOP.1 ---
Operative Date/Time/Diagnoses Date of procedure: 04/21/22 Time of procedure: 10:44 Pre-op diagnosis: Desires permanent sterilization Post-op diagnosis: same Procedure & Clinicians Procedure: Procedures Operation Date: 04/21/22 09:45 Actual Procedure Side Surgeon p Laparoscopic Removal of tubes Bilateral Freida Newmna MD Indications: Desires permanent sterilization Surgeon: Freida Newman Anesthesia Type: General and Local Operative Notes Findings: 6 week size anteverted uterus Normal tubes and ovaries Gallbladder previously removed Normal liver Normal appendix Closure Type: primary Specimen(s): left tube and right tube Estimated blood loss (mL): 5 Blood products transfused: none Procedure in detail: After informed consent was obtained, the patient was taken to the operating room where she was placed in the dorsal supine position. After adequate general endotracheal anesthesia was achieved, she was placed in the dorsal lithotomy position, and prepped and draped in the usual sterile fashion. A time-out was performed. A bivalve speculum was placed into the vagina and the anterior lip of the cervix was grasped with a single-tooth tenaculum. The cervical os was sequentially dilated until the Zumi uterine manipulator could pass easily into the endometrial cavity. The single-tooth tenaculum was removed from the anterior lip of the cervix. The bivalve speculum was removed from the vagina. Attention was then turned to the abdomen where 4 cc of 0.25% Marcaine with epinephrine were injected in the umbilical fold. A 5 mm incision was made through the previous incision. The Veress needle was placed into the peritoneal cavity, and its placement confirmed by aspiration and drop test. The abdominal cavity was insufflated with 3.3 L of CO2. The Veress needle was removed, and a 5 mm trocar was placed without difficulty. Two other 5 mm incisions were made 4 cm lateral to the midline after 4 cc of 0.25% Marcaine with epinephrine were injected. Two 5 mm trocars were placed under direct visualization. The right tube was grasped with an atraumatic grasper. Using the power seal, the mesosalpinx was cauterized and cut all the way down to the cornua of the uterus. The tube was amputated at the cornua. The tube was removed through the 5 mm trocar. Hemostasis was achieved. All of this was repeated on the patient's left side. The tube was removed through the 5 mm trocar. The pelvis was inspected and there was no bleeding noted. The instruments were removed from the abdomen. The trocars were removed from the abdomen. The incisions were repaired with 4-0 Monocryl in a subcuticular fashion. Steri-Strips and Allevyn dressings were placed. The Zumi uterine manipulator was removed from the uterus. Sponge, lap, and instrument counts were correct x2. The patient tolerated the procedure well, and was taken to PACU in stable condition. Complications: none Post-operative Condition: stable Disposition: PACU Plan for aftercare: Home after recovery
[2022-04-21] MEDS: fentaNYL 100 MCG/2 ML INJ IV (10:45)
[2022-04-21] MEDS: HYDROMORPHONE 2 MG INJ IV (10:47)
[2022-04-21] MEDS: OXYCODONE/ACETAMINOPHEN 5/325 TABLET 1 TAB PO (10:59)
== END 2022-04-21 11:41 | disposition home or self-care (01) ==
PROVIDERS: PCP Nurse Practitioner; Referring Provider Obstetrics & Gynecology; Visit Provider Obstetrics & Gynecology
PROC: 0UT74ZZ Resection of Bilateral Fallopian Tubes, Percutaneous Endoscopic Approach (ICD-10-PCS; CPT 58661; principal; 2022-04-21 09:45)
DX: Z30.2 Encounter for sterilization (principal); J45.20 Mild intermittent asthma, uncomplicated; Z20.822 Contact with and (suspected) exposure to COVID-19
CPT/HCPCS: 58661; 81025; 87635; C9803; J0171; J1100; J1170; J1885; J2250; J2405; J2704; J3010

== ENCOUNTER → 2022-07-14 15:23 | Outpatient (CLI) | payer OTHER, SELFPAY ==
--- NOTE | 2022-07-14 15:28 | DI.RAD.S_ITS ---
PROCEDURE: XR CHEST 2V INDICATIONS: SOB, chest tightness, r/o pneumonia TECHNIQUE: 2 views of the chest were acquired. COMPARISON: [facility], CR, XR CHEST 1V, 02/06/2021, 19:17. FINDINGS: Surgical changes and devices: None. Lungs and pleura: Lungs are clear. No pleural effusions or pneumothorax. Mediastinum: Mediastinal contours are normal. Heart size is normal. Bones and chest wall: No suspicious bony abnormalities. Soft tissues appear unremarkable. IMPRESSION: No acute cardiopulmonary process demonstrated radiographically. Dictated by: Jerman Buck M.D. on 07/14/2022 at 16:27 Approved by: Jerman Buck M.D. on 07/14/2022 at 16:27
== END ==
PROVIDERS: PCP Nurse Practitioner; Referring Provider Nurse Practitioner; Visit Provider Nurse Practitioner
DX: J45.41 Moderate persistent asthma with (acute) exacerbation (principal); R06.02 Shortness of breath; R07.89 Other chest pain
CPT/HCPCS: 71046

== ENCOUNTER → 2022-12-03 09:04 | Outpatient (CLI) | payer OTHER, SELFPAY ==
[2022-12-03 10:12] LABS: Add Manual Diff / Slide Review NO; Basophils Absolute Auto 100 /uL (0-100); Basophils Percent Auto 1.1 % (0-2); Eosinophils Absolute Auto 300 /uL (0-450); Eosinophils Percent Auto 4.4 % (2-4); Hemoglobin 12.7 g/dL (12.0-16.0); Lymphocytes Absolute Auto 1700 /uL (1100-4500); Lymphocytes Percent Auto 23.6 % (25-40); Mean Corpuscular HGB Conc 33.4 % (30-36); Mean Corpuscular Hemoglobin 27.3 PG (26-34); Mean Corpuscular Volume 81.8 fL (80-100); Monocytes Absolute Auto 600 /uL (0-900); Monocytes Percent Auto 8.8 % (3-14); Neutrophils Absolute Auto 4300 /uL (1500-7000); Neutrophils Percent Auto 62.1 % (50-75); Platelet Count 313 X10^3/uL (150-400); Red Blood Cell Count 4.65 X10^6/uL (4.0-5.2); Red Cell Distribution Width 14.7 % (11.6-14.8)
[2022-12-03 10:33] LABS: Alanine Aminotransferase 17 IU/L (<35); Albumin 4.1 g/dL (3.5-5.0); Albumin Globulin Ratio 1.2 (1.0-2.8); Alkaline Phosphatase 69 U/L (38-126); Aspartate Aminotransferase 19 IU/L (14-36); BUN Creatinine Ratio 17.1 (6-22); Bilirubin Total 0.4 mg/dL (0.2-1.3); Blood Urea Nitrogen 12 mg/dL (7-17); Calcium 8.6 mg/dL (8.4-10.2); Carbon Dioxide 28 mmol/L (22-32); Chloride 104 mmol/L (98-107); Cholesterol 161 mg/dL (140-199); Estimated Glomerular Filt Rate > 60 mL/min (>60); Globulin 3.4 g/dL (1.7-4.1); Glucose 93 mg/dL (70-100); HDL Cholesterol 50 mg/dL (40-60); HEMOLYSIS < 15 (0-50); LDL Cholesterol Calculated 94 mg/dL (<100); Sodium 138 mmol/L (137-145); Total Protein 7.5 g/dL (6.3-8.2); Triglycerides 85 mg/dL (35-150)
[2022-12-03 10:55] LABS: Free T3, Triiodothyronine Free 4.23 pg/mL (2.77-5.27); Free T4, Direct Thyroxine 1.09 ng/dL (0.78-2.19)
[2022-12-03 11:09] LABS: Thyroid Stimulating Hormone 2.36 uIU/mL (0.47-4.68)
== END ==
PROVIDERS: PCP Nurse Practitioner; Referring Provider Nurse Practitioner; Visit Provider Nurse Practitioner
DX: Z00.00 Encounter for general adult medical examination without abnormal findings (principal)
CPT/HCPCS: 36415; 80053; 80061; 84439; 84443; 84481; 85025

== ENCOUNTER → 2023-05-14 09:24 | Outpatient (CLI) | payer OTHER, SELFPAY ==
--- NOTE | 2023-05-14 09:25 | DI.RAD.S_ITS ---
PROCEDURE: XR FINGER RT MIN 2V INDICATIONS: Injury to right 3rd PIP TECHNIQUE: AP hand, 2 views of the middle finger(s) acquired. COMPARISON: None. FINDINGS: Bones: No fractures or dislocations. No suspicious bony lesions. Soft tissues: No suspicious soft tissue calcifications. IMPRESSION: Normal right hand. No acute abnormality. Dictated by: Fredis Mederos M.D. on 05/14/2023 at 13:22 Approved by: Fredis Mederos M.D. on 05/14/2023 at 13:23
== END ==
PROVIDERS: PCP Nurse Practitioner; Referring Provider Physician Assistant; Visit Provider Physician Assistant
DX: M79.644 Pain in right finger(s) (principal)
CPT/HCPCS: 73140

== ENCOUNTER 2024-06-06 21:53 | Emergency (ER) | payer OTHER, SELFPAY ==
[2024-06-06 21:56] VITALS: BP 166/104; PULSE 72; RESP 22; TEMP 36.4; O2SAT 100; BMI 39.9
--- NOTE | 2024-06-06 22:04 | DI.RAD.S_ITS ---
PROCEDURE: XR CHEST 1V INDICATIONS: chest pain TECHNIQUE: One view of the chest was acquired. COMPARISON: [facility], CR, XR CHEST 2V, 07/14/2022, 15:40. [facility], CR, XR CHEST 1V, 02/06/2021, 19:17. FINDINGS: Surgical changes and devices: None. Lungs and pleura: Lungs are clear. No pleural effusions or pneumothorax. Mediastinum: Mediastinal contours appear normal. Heart size is normal. Bones and chest wall: No suspicious bony lesions. Overlying soft tissues appear unremarkable. IMPRESSION: No acute cardiopulmonary abnormality is seen. Dictated by: Niels Flores M.D. on 06/06/2024 at 23:19 Approved by: Niels Flores M.D. on 06/06/2024 at 23:20
--- NOTE | 2024-06-06 22:04 | EKG_ITS ---
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
[2024-06-06 22:22] LABS: Add Manual Diff / Slide Review NO; Basophils Absolute Auto 100 /uL (0-100); Basophils Percent Auto 1.1 % (0-2); Eosinophils Absolute Auto 200 /uL (0-450); Eosinophils Percent Auto 1.5 % (2-4); Hematocrit 39.5 % (36-46); Hemoglobin 13.6 g/dL (12.0-16.0); Lymphocytes Absolute Auto 2800 /uL (1100-4500); Mean Corpuscular HGB Conc 34.3 % (30-36); Mean Corpuscular Hemoglobin 30.8 PG (26-34); Mean Corpuscular Volume 89.7 fL (80-100); Monocytes Absolute Auto 900 /uL (0-900); Monocytes Percent Auto 9.4 % (3-14); Neutrophils Absolute Auto 6000 /uL (1500-7000); Platelet Count 309 X10^3/uL (150-400); Red Blood Cell Count 4.41 X10^6/uL (4.0-5.2); Red Cell Distribution Width 12.9 % (11.6-14.8)
[2024-06-06 22:28] LABS: INR 1.1 (0.9-1.3); Prothrombin Time 12.3 SECONDS (9.4-12.5)
[2024-06-06 22:31] LABS: PTT Partial Thromboplastin Tim 35 SECONDS (25.1-36.5)
[2024-06-06 22:33] LABS: Alanine Aminotransferase 23 IU/L (<35); Albumin 4.2 g/dL (3.5-5.0); Albumin Globulin Ratio 1.1 (1.0-2.8); Alkaline Phosphatase 72 U/L (38-126); Aspartate Aminotransferase 28 IU/L (14-36); BUN Creatinine Ratio 11.3 (6-22); Bilirubin Total 0.7 mg/dL (0.2-1.3); Blood Urea Nitrogen 9 mg/dL (7-17); Carbon Dioxide 24 mmol/L (22-32); Chloride 104 mmol/L (98-107); Creatine Kinase 183 U/L (30-135); Estimated Glomerular Filt Rate > 60 mL/min (>60); Glucose 105 mg/dL (70-100); HEMOLYSIS 27 (0-50); Lipase 75 U/L (23-300); Magnesium 1.9 mg/dL (1.6-2.3); Potassium 3.4 mmol/L (3.4-5.1); Sodium 135 mmol/L (137-145); Total Protein 8.2 g/dL (6.3-8.2)
[2024-06-06 22:44] LABS: NT-proBNP (BNP-Adult 18+) 36 pg/mL (<125); Troponin I < 0.012 ng/mL (0.01-0.034)
--- NOTE | 2024-06-06 23:18 | ED_ITS ---
HPI - Chest Pain General Chief Complaint: Chest Pain Stated Complaint: chest px, HBP Time Seen by Provider: 06/06/24 23:09 Source: patient Mode of arrival: Ambulatory Limitations: no limitations History of Present Illness HPI narrative: 39-year-old female with history of asthma, hypertension presents with 1 week of intermittent left-sided chest tightness. Today it seemed to be slightly worse than previous. She called the nurse advice line and they referred her to the emergency department. Patient states that she sometimes gets sore ribs after working out in his feels similar, but she was told out of precaution to come to the emergency department for evaluation. Denies family history of heart disease. Denies OCP use, leg swelling, recent surgeries or immobilizations. States she has been under a lot of stress recently due to going back to school and multiple life stressors. Related Data Home Medications Medication Instructions Recorded Confirmed fluticasone propionate 50 1 spray intranasal DAILY 02/17/19 09/14/23 mcg/actuation nasal spray,suspension (Flonase Allergy Relief) Previous Rx's Medication Instructions Recorded albuterol sulfate 2.5 mg/3 mL 2.5 mg (3 mL) inhalation Q4-6H PRN 12/08/22 (0.083 %) solution for nebulization shortness of breath or wheezing #180 mL albuterol sulfate 90 mcg/actuation 2 puff inhalation Q4-6H PRN 12/18/22 aerosol inhaler bronchospasm #8.5 grams inhalational spacing device #1 ea 09/11/23 (Flexichamber spacer) lisinopril 10 mg tablet 10 mg PO .QHS #90 tabs 09/22/23 fluticasone 500 mcg-salmeterol 50 1 inh inhalation Q12H #180 ea 02/23/24 mcg/dose blistr powdr for inhalation Allergies Allergy/AdvReac Type Severity Reaction Status Date / Time sulindac Allergy Severe ANAPHYLAXIS Verified 09/14/23 11:17 Patient History Medical History (Updated 06/07/24 @ 00:01 by Anaid Solorzano MD) Attention deficit disorder Class 2 obesity Benign essential HTN Encounter for sterilization (~03/2022) Moderate persistent asthma with exacerbation Eczema Asthma due to seasonal allergies Surgical History S/P repair of PDA (patent ductus arteriosus) Status post laparoscopic cholecystectomy Status post laparoscopy History of third molar tooth extraction Status post dilation and curettage (12/18/14) Family History Father Colon cancer Mother Breast cancer Social History household members: spouse Smoking Status: Never smoker second hand exposure: No alcohol intake: current substance use type: does not use Smoking Status: Never smoker alcohol intake frequency: holidays/special occasions only Substance Use Type: does not use Exam Initial Vital Signs Initial Vital Signs: Vital Signs Temperature 97.6 F 06/06/24 21:56 Pulse Rate 72 06/06/24 21:56 Respiratory Rate 22 06/06/24 21:56 Blood Pressure 166/104 H 06/06/24 21:56 Pulse Oximetry 100 06/06/24 21:56 Oxygen Delivery Method Room Air 06/06/24 21:56 Course Orders Ordered: ED Orders 06/06/24 22:04 XR chest 1V Stat EKG-12 Lead Stat 06/06/24 22:12 Complete Blood Count AUTO DIFF Stat Comprehensive Metabolic Panel Stat Lipase Stat Magnesium Stat NT-proBNP (BNP-Adult 18+) Stat PTT Partial Thromboplastin Andrew Stat Prothrombin Time INR Stat Troponin & CK Cardiac Panel Stat Vital Signs Vital signs: Vital Signs - 8 hr 06/07/24 00:07 Temperature 98.4 F Pulse Rate 88 Respiratory Rate 19 Blood Pressure 172/85 H Pulse Oximetry 98 Oxygen Delivery Method Room Air MDM - Chest Pain Differential Diagnosis Differential diagnosis: Likely atypical chest pain, costochondritis and chest pain Lab Data 06/06/24 22:12 06/06/24 22:12 Labs: Lab Results 06/06/24 Range/Units 22:12 WBC 10.0 (4.5-11.0) X10^3/uL RBC 4.41 (4.0-5.2) X10^6/uL Hgb 13.6 (12.0-16.0) g/dL Hct 39.5 (36-46) % MCV 89.7 (80-100) fL MCH 30.8 (26-34) PG MCHC 34.3 (30-36) % RDW 12.9 (11.6-14.8) % Plt Count 309 (150-400) X10^3/uL Neut % (Auto) 60.0 (50-75) % Lymph % (Auto) 28.0 (25-40) % [place] % (Auto) 9.4 (3-14) % Eos % (Auto) 1.5 L (2-4) % Baso % (Auto) 1.1 (0-2) % Neut # (Auto) 6000 (3991-1418) /uL Lymph # (Auto) 2800 (9753-7217) /uL [place] # (Auto) 900 (0-900) /uL Eos # (Auto) 200 (0-450) /uL Baso # (Auto) 100 (0-100) /uL PT 12.3 (9.4-12.5) SECONDS INR 1.1 (0.9-1.3) APTT 35 (25.1-36.5) SECONDS Sodium 135 L (137-145) mmol/L Potassium 3.4 (3.4-5.1) mmol/L Chloride 104 (98-107) mmol/L Carbon Dioxide 24 (22-32) mmol/L BUN 9 (7-17) mg/dL Creatinine 0.80 (0.52-1.04) mg/dL Estimated GFR > 60 (>60) mL/min BUN/Creatinine Ratio 11.3 (6-22) Glucose 105 H (70-100) mg/dL Calcium 9.0 (8.4-10.2) mg/dL Magnesium 1.9 (1.6-2.3) mg/dL Total Bilirubin 0.7 (0.2-1.3) mg/dL AST 28 (14-36) IU/L ALT 23 (<35) IU/L Alkaline Phosphatase 72 (38-126) U/L Total Creatine Kinase 183 H (30-135) U/L Troponin I < 0.012 (0.01-0.034) ng/mL NT-Pro-B Natriuret Pep 36 (<125) pg/mL Total Protein 8.2 (6.3-8.2) g/dL Albumin 4.2 (3.5-5.0) g/dL Globulin 4.0 (1.7-4.1) g/dL Albumin/Globulin Ratio 1.1 (1.0-2.8) Lipase 75 (23-300) U/L Imaging Data Chest x-ray: Radiologist's Impression: PROCEDURE: XR CHEST 1V INDICATIONS: chest pain TECHNIQUE: One view of the chest was acquired. COMPARISON: [facility], CR, XR CHEST 2V, 07/14/2022, 15:40. [facility], CR, XR CHEST 1V, 02/06/2021, 19:17. FINDINGS: Surgical changes and devices: None. Lungs and pleura: Lungs are clear. No pleural effusions or pneumothorax. Mediastinum: Mediastinal contours appear normal. Heart size is normal. Bones and chest wall: No suspicious bony lesions. Overlying soft tissues appear unremarkable. IMPRESSION: No acute cardiopulmonary abnormality is seen. Dictated by: Niels Flores M.D. on 06/06/2024 at 23:19 Approved by: Niels Flores M.D. on 06/06/2024 at 23:20 ECG Data Interpretation: Normal sinus rhythm at 66 beats per minute. Normal [place]. T-wave inversions on leads 3, AVF (seen previously on EKG from 2019) MDM Narrative Medical decision making narrative: Well-appearing patient with 1 week of intermittent symptoms. Chest pain is reproducible on exam. EKG shows some T-wave inversions in inferior leads, however these were present on an EKG as far back as 2019. Chest x-ray negative for acute findings. High sensitivity troponin undetectable. Laboratory work, imaging findings, EKG findings discussed with the patient and significant other at bedside. Patient requested to know her glucose. Her glucose here is 105. Patient stated that she was concerned that she may have diabetes as she was a strong family history of diabetes. Patient was counseled to follow up with a primary care doctor for A1C measurement. Given a card for [facility] with phone number to call for PCP's accepting new patients. Discharge Plan Departure Patient Disposition: Home Clinical Impression: Chest pain Instructions: DI for Chest Pain Activity Restrictions/Additional Instructions: Your EKG, laboratory work, and chest x-ray imaging today were reassuring. Your heart enzymes did not indicate any stress on the heart. Your blood glucose today was 105, which is within the normal range if you were not fasting. Follow up with primary care doctor as needed. If you have worsening chest pains, or any other concerning symptoms please return to the emergency department for evaluation. Prescriptions: No Action albuterol sulfate 2.5 mg /3 mL (0.083 %) solution for nebulization 2.5 mg INHALATION Q4-6H PRN (Reason: shortness of breath or wheezing) Qty: 180 3RF albuterol sulfate 90 mcg/actuation HFA aerosol inhaler 2 puff INHALATION Q4-6H PRN (Reason: bronchospasm) Qty: 8.5 1RF Rx Instructions: Inhale 2 puffs every 4-6 hours as needed (DME) Flexichamber Spacer See Rx Instructions .Route Qty: 1 0RF Rx Instructions: Use with inhaled corticosteroid lisinopril 10 mg tablet 10 mg PO .QHS Qty: 90 3RF fluticasone propion-salmeterol 500-50 mcg/dose blister with device 1 inh inhalation Q12H Qty: 180 1RF Rx Instructions: Inhale 1 dose every 12 hours fluticasone propionate [Flonase Allergy Relief] 50 mcg/actuation [place],Suspension 1 spray Intranasal DAILY Patient Comments: patient states using currently due to allergy season Referrals: Leona Jerez ARNP [Primary Care Provider] - Stand Alone Forms: Patient Portal/API
[2024-06-07 00:07] VITALS: BP 172/85; PULSE 88; RESP 19; TEMP 36.9; O2SAT 98
== END 2024-06-07 00:08 | disposition home or self-care (01) ==
PROVIDERS: Emergency Provider Emergency Medicine; PCP Nurse Practitioner
DX: R07.9 Chest pain, unspecified (principal); I49.8 Other specified cardiac arrhythmias
CPT/HCPCS: 36415; 71045; 80053; 82550; 83690; 83735; 83880; 84484; 85025; 85610; 85730; 93005; 99283; 99284

== ENCOUNTER → 2024-06-13 09:17 | Outpatient (CLI) | payer OTHER, SELFPAY ==
[2024-06-13 10:27] LABS: Add Manual Diff / Slide Review NO; Basophils Absolute Auto 100 /uL (0-100); Eosinophils Absolute Auto 100 /uL (0-450); Eosinophils Percent Auto 1.9 % (2-4); Hematocrit 38.7 % (36-46); Hemoglobin 13.3 g/dL (12.0-16.0); Lymphocytes Absolute Auto 1900 /uL (1100-4500); Mean Corpuscular HGB Conc 34.3 % (30-36); Mean Corpuscular Hemoglobin 31.1 PG (26-34); Mean Corpuscular Volume 90.7 fL (80-100); Monocytes Absolute Auto 600 /uL (0-900); Monocytes Percent Auto 8.8 % (3-14); Neutrophils Absolute Auto 4200 /uL (1500-7000); Neutrophils Percent Auto 61.3 % (50-75); Platelet Count 344 X10^3/uL (150-400); Red Blood Cell Count 4.27 X10^6/uL (4.0-5.2); Red Cell Distribution Width 13.1 % (11.6-14.8); White Blood Cell Count 6.8 X10^3/uL (4.5-11.0)
[2024-06-13 11:20] LABS: Creatinine Urine Random 166.28 mg/dL
[2024-06-13 11:22] LABS: HEMOLYSIS < 15 (0-50); Iron 34 ug/dL (37-170)
[2024-06-13 11:24] LABS: Alanine Aminotransferase 40 IU/L (<35); Albumin 3.9 g/dL (3.5-5.0); Albumin Globulin Ratio 1.1 (1.0-2.8); Alkaline Phosphatase 60 U/L (38-126); Aspartate Aminotransferase 27 IU/L (14-36); BUN Creatinine Ratio 15.7 (6-22); Bilirubin Total 0.5 mg/dL (0.2-1.3); Blood Urea Nitrogen 11 mg/dL (7-17); Carbon Dioxide 28 mmol/L (22-32); Chloride 103 mmol/L (98-107); Cholesterol 151 mg/dL (140-199); Estimated Glomerular Filt Rate > 60 mL/min (>60); Globulin 3.5 g/dL (1.7-4.1); Glucose 100 mg/dL (70-100); HDL Cholesterol 47 mg/dL (40-60); HEMOLYSIS < 15 (0-50); LDL Cholesterol Calculated 85 mg/dL (<100); Potassium 4.3 mmol/L (3.4-5.1); Sodium 137 mmol/L (137-145); Total Protein 7.4 g/dL (6.3-8.2); Triglycerides 93 mg/dL (35-150)
[2024-06-13 11:25] LABS: Microalbumin Urine Random 1.5 mg/dL (0-1.6)
[2024-06-13 11:33] LABS: Percent Iron Saturation 11 % (15-50); Total Iron Binding Capacity 298 ug/dL (265-497); Transferrin 235 mg/dL (206-381)
[2024-06-13 11:52] LABS: TSH w/ Reflex to FT4 2.31 uIU/mL (0.47-4.68)
[2024-06-13 11:55] LABS: Ferritin 13 ng/mL (6-137)
[2024-06-13 17:14] LABS: HIV 1 & 2 Ab/Ag 4th Gen Combo NEGATIVE (NEGATIVE); Hep C Virus Ab w/Reflex Quant NEGATIVE s/c (NEGATIVE)
== END ==
PROVIDERS: PCP Family Medicine; Referring Provider Nurse Practitioner; Visit Provider Family Medicine
DX: Z00.00 Encounter for general adult medical examination without abnormal findings (principal); Z11.59 Encounter for screening for other viral diseases; Z11.4 Encounter for screening for human immunodeficiency virus [HIV]; R07.9 Chest pain, unspecified; R42 Dizziness and giddiness
CPT/HCPCS: 36415; 80053; 80061; 82043; 82570; 82728; 83540; 83550; 84443; 85025; 86803; 87389

== ENCOUNTER → 2024-06-28 09:46 | Outpatient (CLI) | payer OTHER, SELFPAY ==
--- NOTE | 2024-06-28 09:47 | DI.RAD.S_ITS ---
PROCEDURE: XR FOOT RT MIN 3V INDICATIONS: Right foot and ankle injury TECHNIQUE: 3 views of the foot were acquired. COMPARISON: None. FINDINGS: Bones: No fractures or dislocations. No suspicious bony lesions. Small plantar calcaneal bone spur. Soft tissues: No tibiotalar joint effusion. Achilles tendon appears normal. IMPRESSION: No acute bony abnormality. Dictated by: Luana Newsome MD, PhD on 06/28/2024 at 10:11 Approved by: Luana Newsome MD, PhD on 06/28/2024 at 10:12
--- NOTE | 2024-06-28 09:47 | DI.RAD.S_ITS ---
PROCEDURE: XR ANKLE RT MIN 3V INDICATIONS: Right foot and ankle injury TECHNIQUE: 3 views of the ankle were acquired. COMPARISON: None. FINDINGS: Bones: No fractures or dislocations. Ankle mortise is normally aligned. No suspicious bony lesions. Soft tissues: No tibiotalar joint effusion. Achilles tendon appears normal. Soft tissue swelling is noted and ligamentous injury cannot be excluded. IMPRESSION: No acute bony abnormality or significant effusion. Dictated by: Luana Newsome MD, PhD on 06/28/2024 at 10:11 Approved by: Luana Newsome MD, PhD on 06/28/2024 at 10:11
== END ==
LOC: RAD 09:47
PROVIDERS: PCP Family Medicine; Referring Provider Physician Assistant Surgical; Visit Provider Physician Assistant Surgical
DX: S99.921A Unspecified injury of right foot, initial encounter (principal); X58.XXXA Exposure to other specified factors, initial encounter
CPT/HCPCS: 73610; 73630

== ENCOUNTER 2024-09-14 13:43 | Emergency (ER) | payer OTHER, SELFPAY ==
[2024-09-14 13:48] VITALS: BP 162/83; PULSE 69; RESP 14; TEMP 36.4; O2SAT 100; BMI 38.2
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
[2024-09-14] MEDS: ACETAMINOPHEN 325 MG TABLET 650 MG PO (15:34)
[2024-09-14] MEDS: ONDANSETRON 4 MG ODT SL (15:35)
[2024-09-14 16:16] VITALS: BP 140/74; PULSE 69; RESP 20; TEMP 37; O2SAT 100
== END 2024-09-14 16:17 | disposition home or self-care (01) ==
PROVIDERS: Emergency Provider Physician Assistant; PCP Family Medicine
DX: S06.0X0A Concussion without loss of consciousness, initial encounter (principal); Y04.2XXA Assault by strike against or bumped into by another person, initial encounter; Y92.219 Unspecified school as the place of occurrence of the external cause; Y99.0 Civilian activity done for income or pay
CPT/HCPCS: 99283

== ENCOUNTER 2025-01-24 13:09 | Emergency (ER) | payer OTHER, SELFPAY ==
[2025-01-24 13:15] VITALS: BP 141/88; PULSE 72; RESP 18; TEMP 36.8; O2SAT 98; BMI 38.9
--- NOTE | 2025-01-24 13:23 | DI.RAD.S_ITS ---
PROCEDURE: XR CHEST 1V INDICATIONS: chest pain TECHNIQUE: One view of the chest was acquired. COMPARISON: [facility], CR, XR CHEST 1V, 06/06/2024, 22:25. [facility], CR, XR CHEST 2V, 07/14/2022, 15:40. FINDINGS: Surgical changes and devices: None. Lungs and pleura: Lungs are clear. No pleural effusions or pneumothorax. Mediastinum: Mediastinal contours appear normal. Heart size is normal. Bones and chest wall: No suspicious bony lesions. Overlying soft tissues appear unremarkable. IMPRESSION: No acute cardiopulmonary abnormality is seen. Dictated by: Guillermo Peter M.D. on 01/24/2025 at 14:06 Approved by: Guillermo Peter M.D. on 01/24/2025 at 14:07
--- NOTE | 2025-01-24 13:27 | EKG_ITS ---
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
[2025-01-24 13:51] LABS: Add Manual Diff / Slide Review NO; Basophils Absolute Auto 100 /uL (0-100); Basophils Percent Auto 0.6 % (0-2); Eosinophils Absolute Auto 100 /uL (0-450); Eosinophils Percent Auto 1.1 % (2-4); Hematocrit 37.4 % (36-46); Hemoglobin 13.2 g/dL (12.0-16.0); Lymphocytes Absolute Auto 1200 /uL (1100-4500); Lymphocytes Percent Auto 13.9 % (25-40); Mean Corpuscular HGB Conc 35.2 % (30-36); Mean Corpuscular Hemoglobin 31.1 PG (26-34); Mean Corpuscular Volume 88.4 fL (80-100); Monocytes Absolute Auto 500 /uL (0-900); Monocytes Percent Auto 6.3 % (3-14); Neutrophils Absolute Auto 6700 /uL (1500-7000); Neutrophils Percent Auto 78.1 % (50-75); Platelet Count 313 X10^3/uL (150-400); Red Blood Cell Count 4.23 X10^6/uL (4.0-5.2); Red Cell Distribution Width 13.2 % (11.6-14.8); White Blood Cell Count 8.6 X10^3/uL (4.5-11.0)
--- NOTE | 2025-01-24 14:07 | PC.NURSE ---
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 Pt went to school nurse's office and reports that she was hypertensive. Pt called pcp and pcp advised pt to come to ED for further eval of CP & HTN. States that sx have now resolved with the exception of some mild tingling in her fingers and toes. Pt denies SOB, CP, dizziness and N/V at this time. A&Ox4.
[2025-01-24 14:15] LABS: Prothrombin Time 11.6 SECONDS (9.4-12.5)
[2025-01-24 14:18] LABS: PTT Partial Thromboplastin Tim 36 SECONDS (25.1-36.5)
[2025-01-24 14:25] LABS: Alanine Aminotransferase 26 IU/L (<35); Albumin 4.5 g/dL (3.5-5.0); Albumin Globulin Ratio 1.3 (1.0-2.8); Alkaline Phosphatase 67 U/L (38-126); Aspartate Aminotransferase 32 IU/L (14-36); BUN Creatinine Ratio 16.2 (6-22); Bilirubin Total 0.6 mg/dL (0.2-1.3); Blood Urea Nitrogen 12 mg/dL (7-17); Calcium 8.9 mg/dL (8.4-10.2); Carbon Dioxide 26 mmol/L (22-32); Chloride 102 mmol/L (98-107); Creatine Kinase 122 U/L (30-135); Estimated Glomerular Filt Rate > 60 mL/min (>60); Globulin 3.5 g/dL (1.7-4.1); Glucose 136 mg/dL (70-99); HEMOLYSIS < 15 (0-50); Lipase 45 U/L (23-300); Magnesium 1.9 mg/dL (1.6-2.3); Potassium 3.5 mmol/L (3.4-5.1); Sodium 137 mmol/L (137-145)
[2025-01-24 14:34] LABS: NT-proBNP (BNP-Adult 18+) 28 pg/mL (<125); Troponin I < 0.012 ng/mL (0.01-0.034)
[2025-01-24 14:56] VITALS: PULSE 73; RESP 18; O2SAT 100
[2025-01-24 14:58] VITALS: BP 152/93; PULSE 62; RESP 19; O2SAT 100
[2025-01-24 15:00] VITALS: BP 153/85; PULSE 63; RESP 19; O2SAT 100
--- NOTE | 2025-01-24 15:07 | ED.CHESTPAIN ---
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 She reports also having blurred vision lightheadedness and feeling a shock-like sensation that goes from the toes all the way up to her head and down her arms and legs again. She is feeling much better now her chest is still a little bit tight. Pt denies active chest, pain shortness of breath but no active cough, fever, chills, nausea, vomiting, or body aches. Other than what is stated 14 point review of system is negative Related Data Home Medications Medication Instructions Recorded Confirmed fluticasone propionate 50 1 spray intranasal DAILY 02/17/19 06/28/24 mcg/actuation nasal spray,suspension (Flonase Allergy Relief) fluticasone 100 mcg-salmeterol 50 1 inh inhalation DAILY 06/28/24 06/28/24 mcg/dose blistr powdr for inhalation (Wixela Inhub) Previous Rx's Medication Instructions Recorded albuterol sulfate 2.5 mg/3 mL 2.5 mg (3 mL) inhalation Q4-6H PRN 12/08/22 (0.083 %) solution for nebulization shortness of breath or wheezing #180 mL inhalational spacing device #1 ea 09/11/23 (Flexichamber spacer) ondansetron 4 mg disintegrating 4 mg PO Q8H PRN nausea and 09/14/24 tablet vomiting #14 tabs albuterol sulfate 90 mcg/actuation 2 puff inhalation Q4-6H PRN for 11/02/24 aerosol inhaler muscle spasm #18 grams fluticasone 500 mcg-salmeterol 50 1 ea inhalation Q12H #180 ea 11/02/24 mcg/dose blistr powdr for inhalation (Wixela Inhub) lisinopril 10 mg tablet 10 mg PO ONCE PM #90 tabs 11/02/24 Allergies Allergy/AdvReac Type Severity Reaction Status Date / Time sulindac Allergy Severe ANAPHYLAXIS Verified 06/28/24 09:15 Review of Systems Review of Systems ROS Unobtainable: All systems reviewed & are unremarkable except as noted in HPI and below Patient History Medical History Dizziness Attention deficit disorder Class 2 obesity Benign essential HTN Encounter for sterilization (~03/2022) Moderate persistent asthma with exacerbation Eczema Asthma due to seasonal allergies Surgical History S/P repair of PDA (patent ductus arteriosus) Status post laparoscopic cholecystectomy Status post laparoscopy History of third molar tooth extraction Status post dilation and curettage (12/18/14) Family History Father Colon cancer Mother Breast cancer Social History household members: spouse second hand exposure: No alcohol intake: current substance use type: does not use alcohol intake frequency: holidays/special occasions only Exam Narrative Exam Narrative: GENERAL: [39] year old patient appears stated age. Well-developed patient, in mild distress. HEAD: Atraumatic. Normocephalic. EYES: Pupils equal round and reactive. Extraocular motions intact. No scleral icterus. No injection or drainage. ENT: Nose without bleeding, purulent drainage. Throat without erythema, tonsillar hypertrophy or exudate. Airway patent. NECK: Trachea midline. Non tender CARDIOVASCULAR: Regular rate and rhythm without murmurs, gallops, or rubs. RESPIRATORY: Clear to auscultation. Breath sounds equal bilaterally. No wheezes, rales, or rhonchi. GASTROINTESTINAL: Abdomen soft, non-tender, nondistended. EXTREMITIES: No edema or joint tenderness. BACK: Nontender without deformity or crepitance. No flank tenderness. NEURO: AOx3. SKIN: No rash or erythema of visible areas Initial Vital Signs Initial Vital Signs: Vital Signs Temperature 98.3 F 01/24/25 13:15 Pulse Rate 72 01/24/25 13:15 Respiratory Rate 18 01/24/25 13:15 Blood Pressure 141/88 H 01/24/25 13:15 Pulse Oximetry 98 01/24/25 13:15 Oxygen Delivery Method Room Air 01/24/25 13:15 Scores HEART Score Heart Score history: Slightly Suspicious Heart Score EKG: Normal Heart Score Age: < 45 years old Heart Score risk factors: 1-2 risk factors Heart Score troponin: < or = to normal limit Heart Score Total: 1 Course Orders Ordered: ED Orders 01/24/25 13:23 XR chest 1V Stat EKG-12 Lead Stat 01/24/25 13:40 Complete Blood Count AUTO DIFF Stat Comprehensive Metabolic Panel Stat Lipase Stat Magnesium Stat NT-proBNP (BNP-Adult 18+) Stat PTT Partial Thromboplastin Andrew Stat Prothrombin Time INR Stat Troponin & CK Cardiac Panel Stat 01/24/25 14:09 Urine Microscopic Stat Vital Signs Vital signs: Vital Signs - 8 hr 01/24/25 13:15 Temperature 98.3 F Pulse Rate 72 Respiratory Rate 18 Blood Pressure 141/88 H Pulse Oximetry 98 Oxygen Delivery Method Room Air MDM - Chest Pain Lab Data 01/24/25 13:40 01/24/25 13:40 Labs: Lab Results 01/24/25 Range/Units 13:40 WBC 8.6 (4.5-11.0) X10^3/uL RBC 4.23 (4.0-5.2) X10^6/uL Hgb 13.2 (12.0-16.0) g/dL Hct 37.4 (36-46) % MCV 88.4 (80-100) fL MCH 31.1 (26-34) PG MCHC 35.2 (30-36) % RDW 13.2 (11.6-14.8) % Plt Count 313 (150-400) X10^3/uL Neut % (Auto) 78.1 H (50-75) % Lymph % (Auto) 13.9 L (25-40) % Emanuel % (Auto) 6.3 (3-14) % Eos % (Auto) 1.1 L (2-4) % Baso % (Auto) 0.6 (0-2) % Neut # (Auto) 6700 (0939-6905) /uL Lymph # (Auto) 1200 (1438-5197) /uL Emanuel # (Auto) 500 (0-900) /uL Eos # (Auto) 100 (0-450) /uL Baso # (Auto) 100 (0-100) /uL PT 11.6 (9.4-12.5) SECONDS INR 1.0 (0.9-1.3) APTT 36 (25.1-36.5) SECONDS Sodium 137 (137-145) mmol/L Potassium 3.5 (3.4-5.1) mmol/L Chloride 102 (98-107) mmol/L Carbon Dioxide 26 (22-32) mmol/L BUN 12 (7-17) mg/dL Creatinine 0.74 (0.52-1.04) mg/dL Estimated GFR > 60 (>60) mL/min BUN/Creatinine Ratio 16.2 (6-22) Glucose 136 H (70-99) mg/dL Calcium 8.9 (8.4-10.2) mg/dL Magnesium 1.9 (1.6-2.3) mg/dL Total Bilirubin 0.6 (0.2-1.3) mg/dL AST 32 (14-36) IU/L ALT 26 (<35) IU/L Alkaline Phosphatase 67 (38-126) U/L Total Creatine Kinase 122 (30-135) U/L Troponin I < 0.012 (0.01-0.034) ng/mL NT-Pro-B Natriuret Pep 28 (<125) pg/mL Total Protein 8.0 (6.3-8.2) g/dL Albumin 4.5 (3.5-5.0) g/dL Globulin 3.5 (1.7-4.1) g/dL Albumin/Globulin Ratio 1.3 (1.0-2.8) Lipase 45 (23-300) U/L Urine Dip Bedside Urine Glucose Negative Bedside Urine Bilirubin - Negative Bedside Urine Ketone - Negative Urine Specific [place] 1.005 Bedside Urine Occult Blood - Negative Bedside Urine pH 6 Bedside Urine Protein - Negative Bedside Urine Urobilinogen - Negative Bedside Urine Nitrite - Negative Bedside Urine Leukocytes +/- 15 Esterase ECG Data Interpretation: NSR HR 68 MN [address]-t wave change QT 410 No previous ekg to compare against MDM Narrative Medical decision making narrative: All lab work vital signs nurse triage note medication list in all previous ER visits reviewed. Blood pressure on arrival 172/112 heart rate of 94 and prior to discharge decreased to 141/88 heart rate of 72. Patient on reexamination is asymptomatic right now patient reports family history of cancer on both mom and dad and she may have had an anxiety attack but she is unsure given that that is how they presented she wanted to get checked out but is reassured that all the testing so far is negative for any acute process. Differential diagnosis include hypertensive urgency, emergency, PE, atypical chest pain, anxiety attack, acute stress disorder, arrythmia. Have patient follow up with PCP in 1-2 weeks. Discharge Plan Departure Patient Disposition: Home Clinical Impression: Hypertension Qualifiers: Hypertension type: primary hypertension Qualified Code(s): I10 - Essential (primary) hypertension Instructions: DI for Malignant Hypertension Activity Restrictions/Additional Instructions: Return with new or worsening symptoms. Follow up with PCP regarding elevated blood pressure within 1-2 weeks. Prescriptions: No Action fluticasone propion-salmeterol [Wixela Inhub] 100-50 mcg/dose blister with device 1 inh inhalation DAILY albuterol sulfate 2.5 mg /3 mL (0.083 %) solution for nebulization 2.5 mg INHALATION Q4-6H PRN (Reason: shortness of breath or wheezing) Qty: 180 3RF (DME) Flexichamber Spacer See Rx Instructions .Route Qty: 1 0RF Rx Instructions: Use with inhaled corticosteroid albuterol sulfate 90 mcg/actuation HFA aerosol inhaler 2 puff inhalation Q4-6H PRN (Reason: for muscle spasm) Qty: 18 1RF lisinopril 10 mg tablet 10 mg PO ONCE PM Qty: 90 0RF fluticasone propion-salmeterol [Wixela Inhub] 500-50 mcg/dose blister with device 1 ea inhalation Q12H Qty: 180 1RF fluticasone propionate [Flonase Allergy Relief] 50 mcg/actuation [place],Suspension 1 spray Intranasal DAILY Patient Comments: patient states using currently due to allergy season ondansetron 4 mg tablet,disintegrating 4 mg PO Q8H PRN (Reason: nausea and vomiting) Qty: 14 0RF Referrals: Joleen Walters MD [Primary Care Provider] - Stand Alone Forms: Patient Portal/API/Survey
[2025-01-24 15:17] VITALS: BP 143/73; PULSE 62; RESP 21; O2SAT 100
[2025-01-24 15:21] LABS: Bacteria Urine Few (2-10); RBC Urine 0-1/HPF (0-5/HPF); Squamous Epithelial Cell Urine 1-5 /HPF (0-5/HPF); Urine Volume 10mL (spun); WBC Urine 1-5/HPF (0-5/HPF)
[2025-01-24 15:22] LABS: Culture Indicated Urine Cult Not Indicated
[2025-01-24 15:30] VITALS: PULSE 61; RESP 25; O2SAT 100
== END 2025-01-24 15:35 | disposition home or self-care (01) ==
PROVIDERS: Emergency Provider Family Medicine; PCP Family Medicine
DX: I10 Essential (primary) hypertension (principal); R07.9 Chest pain, unspecified; R42 Dizziness and giddiness
CPT/HCPCS: 36415; 71045; 80053; 81003; 81015; 82550; 83690; 83735; 83880; 84484; 85025; 85610; 85730; 93005; 99283; 99284

== ENCOUNTER → 2025-03-16 07:45 | Outpatient (CLI) | payer OTHER, SELFPAY | LOC: CAR 07:45 | PROVIDERS: PCP Family Medicine; Referring Provider Family Medicine; Visit Provider Family Medicine | DX: R00.2 Palpitations (principal); R07.9 Chest pain, unspecified | CPT/HCPCS: 93246 ==

== ENCOUNTER → 2025-04-14 13:10 | Outpatient (CLI) | payer OTHER, SELFPAY | PROVIDERS: PCP Family Medicine; Visit Provider Nurse Practitioner Family | DX: J02.9 Acute pharyngitis, unspecified (principal) | CPT/HCPCS: 87070 ==

== ENCOUNTER → 2025-04-14 14:08 | Outpatient (CLI) | payer OTHER, SELFPAY ==
--- NOTE | 2025-04-14 14:09 | DI.RAD.S_ITS ---
PROCEDURE: XR CHEST 2V INDICATIONS: Acute cough TECHNIQUE: 2 views of the chest were acquired. COMPARISON: [facility], CR, XR CHEST 1V, 01/24/2025, 13:38. FINDINGS: Surgical changes and devices: None. Lungs and pleura: Lungs are clear. No pleural effusions or pneumothorax. Mediastinum: Mediastinal contours are normal. Heart size is normal. Bones and chest wall: No suspicious bony abnormalities. Soft tissues appear unremarkable. IMPRESSION: No acute cardiopulmonary abnormality is seen. Dictated by: Eugenio Valenzuela M.D. on 04/14/2025 at 21:52 Approved by: Eugenio Valenzuela M.D. on 04/14/2025 at 21:53
== END ==
LOC: RAD 14:09
PROVIDERS: PCP Family Medicine; Referring Provider Nurse Practitioner Family; Visit Provider Nurse Practitioner Family
DX: R05.1 Acute cough (principal)
CPT/HCPCS: 71046; 87070

== ENCOUNTER → 2025-08-08 15:03 | Outpatient (CLI) | payer OTHER, SELFPAY ==
[2025-08-08 15:55] LABS: Hematocrit 37.5 % (36-46); Hemoglobin 12.8 g/dL (12.0-16.0); Mean Corpuscular HGB Conc 34.0 % (30-36); Mean Corpuscular Hemoglobin 29.7 PG (26-34); Mean Corpuscular Volume 87.2 fL (80-100); Platelet Count 351 X10^3/uL (150-400)
[2025-08-08 16:08] LABS: INR 1.1 (0.9-1.3); Prothrombin Time 12.4 SECONDS (9.4-12.5)
[2025-08-08 16:16] LABS: HEMOLYSIS < 15 (0-50); Iron 33 ug/dL (37-170)
[2025-08-08 16:20] LABS: Alanine Aminotransferase 15 IU/L (<35); Albumin 4.2 g/dL (3.5-5.0); Albumin Globulin Ratio 1.2 (1.0-2.8); Alkaline Phosphatase 62 U/L (38-126); Blood Urea Nitrogen 12 mg/dL (7-17); Calcium 9.3 mg/dL (8.4-10.2); Carbon Dioxide 28 mmol/L (22-32); Chloride 101 mmol/L (98-107); Estimated Glomerular Filt Rate > 60 mL/min (>60); Globulin 3.5 g/dL (1.7-4.1); Glucose 97 mg/dL (70-99); HEMOLYSIS < 15 (0-50); Potassium 3.7 mmol/L (3.4-5.1); Sodium 140 mmol/L (137-145); Total Protein 7.7 g/dL (6.3-8.2)
[2025-08-08 16:28] LABS: Percent Iron Saturation 11 % (15-50); Total Iron Binding Capacity 302 ug/dL (265-497); Transferrin 248 mg/dL (206-381)
[2025-08-08 16:52] LABS: Ferritin 14 ng/mL (6-137)
== END ==
PROVIDERS: PCP Family Medicine; Referring Provider Family Medicine; Visit Provider Family Medicine
DX: R23.3 Spontaneous ecchymoses (principal)
CPT/HCPCS: 36415; 80053; 82728; 83540; 83550; 85027; 85610